=== PATIENT | female | born 1970 | race Caucasian/White ===

== ENCOUNTER 2024-03-24 15:50 | Inpatient (IN) | payer BC, MEDICAID ==
[~2024-03-24] VITALS: Ht 139.7 cm; Wt 56.1 kg
[~2024-03-24 15:50] MED LIST: NITR100C6 PO; PROM12.512 PO
[2024-03-24] MEDS ORDERED: iohexol 300mg/ml 100ml inj. ONE (19:02)
[2024-03-24 19:18] LABS: BASOPHILS # (AUTO) 0.1 X10'3 (0-0.2); BASOPHILS % (AUTO) 0.9 % (0-1); EOSINOPHILS # (AUTO) 0.1 X10'3 (0-0.9); EOSINOPHILS % (AUTO) 0.5 % (0-6); HEMATOCRIT 33.4 % (35.0-45.0); HEMOGLOBIN 10.4 g/dl (12.0-16.0); LYMPHOCYTES # (AUTO) 1.8 X10'3 (1.1-4.8); LYMPHOCYTES % (AUTO) 17.3 % (21-51); MEAN CORPUSCULAR HEMOGLOBIN 25.4 PG (27.0-31.0); MEAN CORPUSCULAR HGB CONC 31.1 g/dL (33.0-36.5); MEAN CORPUSCULAR VOLUME 81.9 FL (78-98); MEAN PLATELET VOLUME 8.4 FL (7.4-10.4); MONOCYTES # (AUTO) 0.5 X10'3 (0-0.9); MONOCYTES % (AUTO) 4.6 % (2-12); NEUTROPHILS # (AUTO) 8.1 X10'3 (1.8-7.7); NEUTROPHILS % (AUTO) 76.7 % (42-75); PLATELET COUNT 613 X10'3 (140-440); RED BLOOD COUNT 4.08 X10'6 (4.20-5.60); RED CELL DISTRIBUTION WIDTH 22.1 % (11.5-14.5); WHITE BLOOD COUNT 10.6 X10'3 (4.5-11.0)
[2024-03-24 19:30] LABS: ALANINE AMINOTRANSFERASE 11 U/L (12-78); ALBUMIN/GLOBULIN RATIO 0.3 (1.1-1.5); ALKALINE PHOSPHATASE 111 IU/L (46-116); ANION GAP 9 (8-16); ASPARTATE AMINO TRANSFERASE 10 U/L (10-37); BILIRUBIN,TOTAL 0.3 MG/DL (0.1-1.0); BLOOD UREA NITROGEN 4 MG/DL (7-18); BUN/CREATININE RATIO 5.6 (10.0-20.0); C-REACTIVE PROTEIN 8.94 MG/DL (0.0-0.5); CALCIUM 8.4 MG/DL (8.5-10.1); CHLORIDE 109 MMOL/L (99-107); CREATININE 0.72 MG/DL (0.40-0.90); GLUCOSE 112 MG/DL (70-104); SODIUM 141 MMOL/L (135-145); TOTAL CARBON DIOXIDE 23.3 MMOL/L (24-32); TOTAL PROTEIN 7.9 G/DL (6.4-8.2); eCRCL 48 ML/MIN; eGFR 84 ML/MIN
[2024-03-24] MEDS: diatr meglu/diatrizoate 30ml oral sol.-(3 dose) bottle PO SCH (19:30)
[2024-03-24 19:32] LABS: POTASSIUM 2.7 MMOL/L (3.5-5.1)
[2024-03-24] MEDS: vancomycin/NS 1 GM ADD-VANTAGE 250 ML IV ONE (19:40)
[2024-03-24] MEDS: normal saline 1000ml 1,000 ML IV ONE (20:03)
[2024-03-24] MEDS: ondansetron/PF 4mg/2ml inj IV ONE ×2 (20:10→21:39)
[2024-03-24] MEDS: magnesium sulf-water 2g/50mL 50 ML IV ONE (20:27)
[2024-03-24] MEDS: potassium chloride 10mEq ER tablet PO ONE (20:27)
[2024-03-24] MEDS: HYDROmorphone 1 mg/ml syringe IV ONE (21:42)
[2024-03-24 21:44] LABS: ANISOCYTOSIS 3+; BURR CELLS FEW; ELLIPTOCYTES FEW; HYPOCHROMASIA 1+; PLATELET ESTIMATE INCREASED
[2024-03-24] MEDS: levoFLOXACIN-Levaquin 500mg/D5 100 ML IV SCH (22:20)
[2024-03-24] MEDS ORDERED: magnesium sulf-water 2g/50mL 50 ML IV PRN (22:40)
[2024-03-24] MEDS ORDERED: potassium Cl 20 mEq SR tablet PO PRN (22:40)
[2024-03-24] MEDS ORDERED: magnesium Cl slow-release 64mg tablet PO PRN (22:40)
[2024-03-24] MEDS ORDERED: potassium Cl 40MEQ/1/2NS 520ml 520 ML IV PRN (22:40)
[2024-03-24] MEDS ORDERED: magnesium hydroxide 30ml (MOM) UD suspension PO PRN (22:40)
[2024-03-24] MEDS ORDERED: acetaminophen 325mg tablet PO PRN (22:40)
[2024-03-24] MEDS ORDERED: glucagon, human recombinant 1mg kit SUBCUT PRN (22:50)
[2024-03-24] MEDS ORDERED: DEXTROSE 15 GM of carb/4 tabs (each vial/BOTTLE has 4 tablets) PO PRN (22:50)
[2024-03-24] MEDS ORDERED: dextrose 50%-water 50ml dispensing syringe IV PRN ×2 (22:50)
[2024-03-24] MEDS: normal saline 1000ml 1,000 ML IV SCH (23:19)
[2024-03-24 23:47] LABS: BILIRUBIN,URINE NEGATIVE (Neg); CLARITY,URINE SLIGHTLY CLOUDY (Clear); COLOR,URINE YELLOW (Yellow); GLUCOSE, URINE NEGATIVE (Neg); KETONES,URINE NEGATIVE (Neg); LEUKOCYTE ESTERASE ,URINE TRACE (Neg); NITRITES, URINE POSITIVE (Neg); OCCULT BLOOD,URINE NEGATIVE (Neg); PROTEIN,URINE NEGATIVE (Neg); UROBILINOGEN,URINE 0.2 E.U/dL (0.2-1.0)
[2024-03-25] LABS: UA COLLECTION TYPE CLN CATCH MIDSTREAM
[2024-03-25 00:02] LABS: WBC,URINE 30-50 /HPF (0-4)
[2024-03-25 00:03] LABS: AMORPHOUS PHOSPHATES 3+; BACTERIA,URINE 4+ /HPF (Neg); MUCUS STRANDS FEW /LPF (Neg); RENAL CELLS, URINE FEW /HPF; SQUAMOUS EPITHELIAL CELL,UR MODERATE /LPF (FEW); TRANSITIONAL EPI CELLS,URINE FEW /HPF; WBC CLUMPS,URINE FEW /HPF (NEGATIVE)
[2024-03-25] MEDS: metroNIDAZOLE-Flagyl 500mg/NS 100 ML IV SCH (00:47)
[2024-03-25] MEDS: heparin, porcine 5000 units/ml vial SQ SCH (00:47)
[2024-03-25] MEDS: HYDROcodone/acetaminophen 10/325mg tab PO ONE (01:10)
[2024-03-25] MEDS: morphine 2 MG/ML inj. syringe IV PRN ×2 (01:18→04:53)
[2024-03-25 02:57] LABS: BASOPHILS # (AUTO) 0.1 X10'3 (0-0.2); BASOPHILS % (AUTO) 0.6 % (0-1); EOSINOPHILS # (AUTO) 0.1 X10'3 (0-0.9); EOSINOPHILS % (AUTO) 0.6 % (0-6); HEMATOCRIT 28.3 % (35.0-45.0); HEMOGLOBIN 8.8 g/dl (12.0-16.0); LYMPHOCYTES # (AUTO) 1.3 X10'3 (1.1-4.8); LYMPHOCYTES % (AUTO) 11.1 % (21-51); MEAN CORPUSCULAR HEMOGLOBIN 25.4 PG (27.0-31.0); MEAN CORPUSCULAR HGB CONC 31.1 g/dL (33.0-36.5); MEAN CORPUSCULAR VOLUME 81.7 FL (78-98); MEAN PLATELET VOLUME 7.8 FL (7.4-10.4); MONOCYTES # (AUTO) 0.8 X10'3 (0-0.9); MONOCYTES % (AUTO) 7.2 % (2-12); NEUTROPHILS # (AUTO) 9.5 X10'3 (1.8-7.7); NEUTROPHILS % (AUTO) 80.5 % (42-75); PLATELET COUNT 480 X10'3 (140-440); RED BLOOD COUNT 3.46 X10'6 (4.20-5.60); RED CELL DISTRIBUTION WIDTH 22.1 % (11.5-14.5); WHITE BLOOD COUNT 11.7 X10'3 (4.5-11.0)
[2024-03-25 03:07] LABS: INR 1.1 INR; PROTHROMBIN TIME 11.2 SECONDS (9.0-12.0)
[2024-03-25 03:12] LABS: ALANINE AMINOTRANSFERASE 9 U/L (12-78); ALBUMIN 1.6 G/DL (3.4-5.0); ALBUMIN/GLOBULIN RATIO 0.3 (1.1-1.5); ALKALINE PHOSPHATASE 93 IU/L (46-116); ANION GAP 6 (8-16); ASPARTATE AMINO TRANSFERASE 10 U/L (10-37); BILIRUBIN,TOTAL 0.2 MG/DL (0.1-1.0); BLOOD UREA NITROGEN 3 MG/DL (7-18); BUN/CREATININE RATIO 4.5 (10.0-20.0); CALCIUM 7.6 MG/DL (8.5-10.1); CHLORIDE 112 MMOL/L (99-107); CHOL/HDL RATIO 3.2 (0.00-4.99); CHOLESTEROL 139 MG/DL (0-200); CREATININE 0.66 MG/DL (0.40-0.90); GLUCOSE 108 MG/DL (70-104); HDL CHOLESTEROL 44 MG/DL (35-60); LDL CHOLESTEROL 76 MG/DL (50-100); POTASSIUM 3.5 MMOL/L (3.5-5.1); SODIUM 141 MMOL/L (135-145); TOTAL CARBON DIOXIDE 23.1 MMOL/L (24-32); TOTAL PROTEIN 6.6 G/DL (6.4-8.2); TRIGLYCERIDES 91 MG/DL (20-135); eCRCL 52 ML/MIN; eGFR > 90 ML/MIN
[2024-03-25] MEDS: HYDROcodone/acetaminophen 5mg/325mg tablet PO ONE ×2 (04:48→12:35)
[2024-03-25] MEDS: ondansetron/PF 4mg/2ml inj IV PRN (04:53)
[2024-03-25] MEDS: INSULIN LISPRO 100 UNIT/ML INSULN.PEN MULTI-DOSE SQ SCH (07:00)
[2024-03-25] MEDS: docusate sod 100mg capsule PO SCH (08:00)
[2024-03-25] MEDS: K and/or MAG REPLACEMENT MC SCH (08:07)
[2024-03-25] MEDS: metoclopramide 5 mg/ml inj IV PRN (10:56)
[2024-03-25] MEDS ORDERED: metoclopramide 5 mg/ml inj IV PRN (12:30)
[2024-03-25] MEDS: LidoCAINE 2% Topical Jelly 11mL syringe (UROJET) TOP ONE (12:35)
[2024-03-25] MEDS: HYDROmorphone/PF 0.2 MG/ML SYRINGE IV PRN (16:39)
[2024-03-25 18:00] VITALS: BP 123/67; PULSE 89; RESP 20; TEMP 97.7; O2SAT 96
[2024-03-25 20:25] VITALS: RESP 16; O2SAT 96
[2024-03-25] MEDS: HYDROcodone/acetaminophen 10/325mg tab PO PRN (21:00)
[2024-03-25 22:00] VITALS: BP 135/67; PULSE 94; RESP 18; TEMP 98; O2SAT 94
[2024-03-26] VITALS (7 sets, daily range): BP systolic 121–153; BP diastolic 60–84; PULSE 81–99; RESP 17–24; TEMP 96.1–98.9; O2SAT 92–98
[2024-03-26] MEDS ORDERED: HYDROmorphone/PF 0.2 MG/ML SYRINGE IM ONE (01:20)
[2024-03-26] MEDS: HYDROmorphone/PF 0.2 MG/ML SYRINGE IV ONE (01:47)
[2024-03-26] MEDS ORDERED: TRAZ150T78 PO (02:43)
[2024-03-26] MEDS ORDERED: GABA-530 PO (02:51)
[2024-03-26] MEDS ORDERED: BUS15T PO (02:52)
[2024-03-26 06:38] LABS: BASOPHILS # (AUTO) 0.1 X10'3 (0-0.2); BASOPHILS % (AUTO) 0.9 % (0-1); EOSINOPHILS # (AUTO) 0.1 X10'3 (0-0.9); EOSINOPHILS % (AUTO) 1.7 % (0-6); LYMPHOCYTES # (AUTO) 1.8 X10'3 (1.1-4.8); LYMPHOCYTES % (AUTO) 22.7 % (21-51); MEAN CORPUSCULAR HEMOGLOBIN 25.3 PG (27.0-31.0); MEAN CORPUSCULAR HGB CONC 30.6 g/dL (33.0-36.5); MEAN CORPUSCULAR VOLUME 82.5 FL (78-98); MEAN PLATELET VOLUME 8.7 FL (7.4-10.4); MONOCYTES # (AUTO) 0.6 X10'3 (0-0.9); MONOCYTES % (AUTO) 7.2 % (2-12); NEUTROPHILS # (AUTO) 5.5 X10'3 (1.8-7.7); NEUTROPHILS % (AUTO) 67.5 % (42-75); PLATELET COUNT 478 X10'3 (140-440); RED BLOOD COUNT 3.15 X10'6 (4.20-5.60); WHITE BLOOD COUNT 8.1 X10'3 (4.5-11.0)
[2024-03-26 06:55] LABS: ALBUMIN 1.4 G/DL (3.4-5.0); ALBUMIN/GLOBULIN RATIO 0.3 (1.1-1.5); ALKALINE PHOSPHATASE 83 IU/L (46-116); ANION GAP 7 (8-16); ASPARTATE AMINO TRANSFERASE 7 U/L (10-37); BILIRUBIN,TOTAL 0.1 MG/DL (0.1-1.0); BLOOD UREA NITROGEN 2 MG/DL (7-18); BUN/CREATININE RATIO 3.4 (10.0-20.0); CALCIUM 7.7 MG/DL (8.5-10.1); CHLORIDE 112 MMOL/L (99-107); CREATININE 0.58 MG/DL (0.40-0.90); GLUCOSE 101 MG/DL (70-104); MAGNESIUM 1.5 MG/DL (1.5-2.4); POTASSIUM 3.1 MMOL/L (3.5-5.1); SODIUM 140 MMOL/L (135-145); TOTAL CARBON DIOXIDE 20.9 MMOL/L (24-32); TOTAL PROTEIN 6.2 G/DL (6.4-8.2); eCRCL 60 ML/MIN; eGFR > 90 ML/MIN
[2024-03-26 06:56] LABS: ALANINE AMINOTRANSFERASE < 6 U/L (12-78)
[2024-03-26] MEDS: potassium Cl 20 mEq SR tablet PO PRN (09:17)
[2024-03-26] MEDS: HYDROcodone/acetaminophen 10/325mg tab PO PRN (11:35)
[2024-03-26 14:24] LABS: % IRON SATURATION 21 % (11-46); IRON 23 UG/DL (49-151); TOTAL IRON BINDING CAPACITY 112 UG/DL (259-388)
[2024-03-26 14:25] LABS: FERRITIN 85 NG/ML (8-252)
[2024-03-26] MEDS: JUVEN Smoothie Arginine/Glut./Ca2+Bmb (Juven 19.3pkt) 240ml cup PO SCH (17:30)
[2024-03-26] MEDS: iron polysaccharide complex 150mg capsule PO SCH (20:10)
[2024-03-26] MEDS: ascorbic acid 500mg tablet PO SCH (20:11)
[2024-03-26] MEDS: zinc sulfate 220mg capsule PO SCH (21:00)
[2024-03-26] MEDS: traZODone 150mg tablet PO SCH (21:11)
[2024-03-26] MEDS: linezolid 600mg/300ml PREMIX 300 ML IV SCH (22:25)
[2024-03-27] VITALS (8 sets, daily range): BP systolic 115–154; BP diastolic 63–72; PULSE 77–104; RESP 14–26; TEMP 97.4–98.5; O2SAT 90–96
[2024-03-27] MEDS: HYDROmorphone/PF 0.2 MG/ML SYRINGE IV PRN (00:03)
[2024-03-27 07:18] LABS: BASOPHILS # (AUTO) 0.1 X10'3 (0-0.2); BASOPHILS % (AUTO) 1.1 % (0-1); EOSINOPHILS # (AUTO) 0.2 X10'3 (0-0.9); EOSINOPHILS % (AUTO) 2.7 % (0-6); HEMATOCRIT 26.3 % (35.0-45.0); LYMPHOCYTES # (AUTO) 1.5 X10'3 (1.1-4.8); LYMPHOCYTES % (AUTO) 18.5 % (21-51); MEAN CORPUSCULAR HEMOGLOBIN 25.6 PG (27.0-31.0); MEAN CORPUSCULAR HGB CONC 30.4 g/dL (33.0-36.5); MEAN CORPUSCULAR VOLUME 84.2 FL (78-98); MEAN PLATELET VOLUME 8.2 FL (7.4-10.4); MONOCYTES # (AUTO) 0.6 X10'3 (0-0.9); NEUTROPHILS # (AUTO) 5.6 X10'3 (1.8-7.7); NEUTROPHILS % (AUTO) 69.7 % (42-75); PLATELET COUNT 497 X10'3 (140-440); RED BLOOD COUNT 3.12 X10'6 (4.20-5.60); RED CELL DISTRIBUTION WIDTH 22.6 % (11.5-14.5); WHITE BLOOD COUNT 8.1 X10'3 (4.5-11.0)
[2024-03-27] MEDS: levoFLOXACIN-Levaquin 500mg/D5 100 ML IV SCH (07:57)
[2024-03-27] MEDS: folic acid 1mg tablet PO SCH (07:58)
[2024-03-27 08:18] LABS: ALBUMIN 1.5 G/DL (3.4-5.0); ALBUMIN/GLOBULIN RATIO 0.3 (1.1-1.5); ALKALINE PHOSPHATASE 76 IU/L (46-116); ANION GAP 6 (8-16); ASPARTATE AMINO TRANSFERASE 5 U/L (10-37); BILIRUBIN,TOTAL 0.2 MG/DL (0.1-1.0); BLOOD UREA NITROGEN 1 MG/DL (7-18); BUN/CREATININE RATIO 1.8 (10.0-20.0); CALCIUM 8.1 MG/DL (8.5-10.1); CHLORIDE 112 MMOL/L (99-107); CREATININE 0.55 MG/DL (0.40-0.90); GLUCOSE 134 MG/DL (70-104); POTASSIUM 3.7 MMOL/L (3.5-5.1); SODIUM 141 MMOL/L (135-145); TOTAL CARBON DIOXIDE 22.7 MMOL/L (24-32); TOTAL PROTEIN 6.1 G/DL (6.4-8.2); eCRCL 63 ML/MIN; eGFR > 90 ML/MIN
[2024-03-27 08:22] LABS: MAGNESIUM 0.7 MG/DL (1.5-2.4)
[2024-03-27] MEDS: magnesium sulf-water 4G/100mL 100 ML IV PRN (08:45)
[2024-03-27] MEDS: magnesium sulf-water 4G/100mL 100 ML IV ONE (08:51)
[2024-03-27 08:55] LABS: ALANINE AMINOTRANSFERASE < 6 U/L (12-78)
[2024-03-27] MEDS ORDERED: levoFLOXACIN 500mg tablet PO SCH (11:00)
[2024-03-28] VITALS (15 sets, daily range): BP systolic 121–165; BP diastolic 67–92; PULSE 69–98; RESP 16–26; TEMP 97.4–98.8; O2SAT 86–98
[2024-03-28] MEDS ORDERED: magnesium sulf-water 4G/100mL 100 ML IV PRN (06:50)
[2024-03-28] MEDS ORDERED: magnesium Cl slow-release 64mg tablet PO PRN (06:50)
[2024-03-28] MEDS ORDERED: magnesium sulf-water 2g/50mL 50 ML IV PRN (06:50)
[2024-03-28] MEDS ORDERED: potassium Cl 20 mEq SR tablet PO PRN ×2 (06:50)
[2024-03-28] MEDS ORDERED: potassium Cl 40MEQ/1/2NS 520ml 520 ML IV PRN (06:50)
[2024-03-28 07:46] LABS: BASOPHILS # (AUTO) 0.1 X10'3 (0-0.2); BASOPHILS % (AUTO) 0.9 % (0-1); EOSINOPHILS # (AUTO) 0.3 X10'3 (0-0.9); EOSINOPHILS % (AUTO) 3.9 % (0-6); HEMATOCRIT 27.4 % (35.0-45.0); HEMOGLOBIN 8.5 g/dl (12.0-16.0); LYMPHOCYTES # (AUTO) 1.4 X10'3 (1.1-4.8); LYMPHOCYTES % (AUTO) 19.4 % (21-51); MEAN CORPUSCULAR HEMOGLOBIN 25.5 PG (27.0-31.0); MEAN CORPUSCULAR HGB CONC 30.8 g/dL (33.0-36.5); MEAN CORPUSCULAR VOLUME 82.7 FL (78-98); MEAN PLATELET VOLUME 8.1 FL (7.4-10.4); MONOCYTES # (AUTO) 0.6 X10'3 (0-0.9); MONOCYTES % (AUTO) 7.9 % (2-12); NEUTROPHILS # (AUTO) 4.8 X10'3 (1.8-7.7); NEUTROPHILS % (AUTO) 67.9 % (42-75); PLATELET COUNT 562 X10'3 (140-440); RED BLOOD COUNT 3.32 X10'6 (4.20-5.60); WHITE BLOOD COUNT 7.1 X10'3 (4.5-11.0)
[2024-03-28] MEDS: K and/or MAG REPLACEMENT MC SCH (08:00)
[2024-03-28 08:44] LABS: ALANINE AMINOTRANSFERASE 10 U/L (12-78); ALBUMIN 1.5 G/DL (3.4-5.0); ALBUMIN/GLOBULIN RATIO 0.3 (1.1-1.5); ALKALINE PHOSPHATASE 78 IU/L (46-116); ANION GAP 7 (8-16); ASPARTATE AMINO TRANSFERASE 16 U/L (10-37); BILIRUBIN,TOTAL 0.1 MG/DL (0.1-1.0); BLOOD UREA NITROGEN 4 MG/DL (7-18); BUN/CREATININE RATIO 6.3 (10.0-20.0); CALCIUM 7.8 MG/DL (8.5-10.1); CHLORIDE 112 MMOL/L (99-107); CREATININE 0.64 MG/DL (0.40-0.90); GLUCOSE 121 MG/DL (70-104); MAGNESIUM 1.8 MG/DL (1.5-2.4); POTASSIUM 3.5 MMOL/L (3.5-5.1); SODIUM 141 MMOL/L (135-145); TOTAL PROTEIN 6.4 G/DL (6.4-8.2); eCRCL 54 ML/MIN; eGFR > 90 ML/MIN
[2024-03-28] MEDS: metroNIDAZOLE-Flagyl 500mg/NS 100 ML IV SCH (09:58)
[2024-03-28] MEDS: levoFLOXACIN-Levaquin 750MG/D5 150 ML IV SCH (09:58)
[2024-03-28] MEDS: linezolid 600mg/300ml PREMIX 300 ML IV SCH (09:58)
[2024-03-28 10:04] LABS: PLATELET ESTIMATE INCREASED; POLYCHROMASIA 1+
[2024-03-28 10:05] LABS: ANISOCYTOSIS 3+; ELLIPTOCYTES FEW; HYPOCHROMASIA 1+; SCHISTOCYTES FEW
[2024-03-28] MEDS ORDERED: sevoflurane 250ml liquid IH ONE (19:24)
[2024-03-28] MEDS ORDERED: fentaNYL/PF 50MCG/1 ML 2ML syringe ONE (19:27)
[2024-03-28] MEDS ORDERED: HYDROmorphone/PF 0.2 MG/ML SYRINGE IV PRN (19:50)
[2024-03-28] MEDS ORDERED: morphine 4 MG/ML inj SYRINge IV PRN (19:50)
[2024-03-28] MEDS ORDERED: labetalol 20mg/4ml (5mg/ml) syringe IV PRN (19:50)
[2024-03-28] MEDS ORDERED: proCHLORperazine 10 MG/2 ml inj IV PRN (19:50)
[2024-03-28] MEDS ORDERED: hydrALAZINE 20mg/ml inj. IV PRN (19:50)
[2024-03-28] MEDS ORDERED: rocuronium 10mg/ml inj IV ONE (19:56)
[2024-03-28] MEDS ORDERED: propofol inj 20 ML IV ONE (19:56)
[2024-03-28] MEDS ORDERED: midazolam 1 mg/ML 2ml injection ONE (19:56)
[2024-03-28] MEDS ORDERED: LIDOcaine 2% (20mg/ml) 5ml vial ONE (19:56)
[2024-03-28] MEDS ORDERED: dexamethasone sod phosphate 4mg/ml inj. ONE (19:59)
[2024-03-28] MEDS ORDERED: ondansetron/PF 4mg/2ml inj ONE (19:59)
[2024-03-28] MEDS: acetaminophen 1,000mg/100ml IV 100 ML IV ONE (20:33)
[2024-03-28] MEDS: morphine 2 MG/ML inj. syringe IV PRN (20:33)
[2024-03-28] MEDS: ondansetron/PF 4mg/2ml inj IV PRN (20:40)
[2024-03-28] MEDS: ringers solution, lacted 1,000 ML IV SCH (22:11)
[2024-03-29] VITALS (7 sets, daily range): BP systolic 97–129; BP diastolic 47–67; PULSE 57–96; RESP 17–20; TEMP 97–98.5; O2SAT 95–99
[2024-03-29] MEDS: cefepime 1GM/NS ADD-VANTAGE 100 ML IV SCH (01:45)
[2024-03-29 06:32] LABS: BASOPHILS % (AUTO) 0.4 % (0-1); EOSINOPHILS % (AUTO) 0 % (0-6); HEMATOCRIT 30.8 % (35.0-45.0); HEMOGLOBIN 9.7 g/dl (12.0-16.0); LYMPHOCYTES # (AUTO) 0.7 X10'3 (1.1-4.8); LYMPHOCYTES % (AUTO) 9.1 % (21-51); MEAN CORPUSCULAR HEMOGLOBIN 25.8 PG (27.0-31.0); MEAN CORPUSCULAR HGB CONC 31.4 g/dL (33.0-36.5); MEAN CORPUSCULAR VOLUME 82.2 FL (78-98); MONOCYTES # (AUTO) 0.1 X10'3 (0-0.9); MONOCYTES % (AUTO) 1.1 % (2-12); NEUTROPHILS # (AUTO) 7.2 X10'3 (1.8-7.7); NEUTROPHILS % (AUTO) 89.4 % (42-75); PLATELET COUNT 563 X10'3 (140-440); RED BLOOD COUNT 3.75 X10'6 (4.20-5.60); RED CELL DISTRIBUTION WIDTH 22.4 % (11.5-14.5); WHITE BLOOD COUNT 8.1 X10'3 (4.5-11.0)
[2024-03-29 07:05] LABS: ALANINE AMINOTRANSFERASE 10 U/L (12-78); ALBUMIN 1.7 G/DL (3.4-5.0); ALBUMIN/GLOBULIN RATIO 0.3 (1.1-1.5); ALKALINE PHOSPHATASE 83 IU/L (46-116); ANION GAP 9 (8-16); ASPARTATE AMINO TRANSFERASE 9 U/L (10-37); BILIRUBIN,TOTAL 0.2 MG/DL (0.1-1.0); BLOOD UREA NITROGEN 5 MG/DL (7-18); BUN/CREATININE RATIO 7.4 (10.0-20.0); CALCIUM 8.3 MG/DL (8.5-10.1); CHLORIDE 104 MMOL/L (99-107); CREATININE 0.68 MG/DL (0.40-0.90); GLUCOSE 206 MG/DL (70-104); SODIUM 136 MMOL/L (135-145); TOTAL CARBON DIOXIDE 23.2 MMOL/L (24-32); TOTAL PROTEIN 7.1 G/DL (6.4-8.2); eCRCL 51 ML/MIN; eGFR 90 ML/MIN
[2024-03-29] MEDS: HYDROmorphone/PF 0.2 MG/ML SYRINGE IV PRN (10:36)
[2024-03-29] MEDS: metoclopramide 5 mg/ml inj IV PRN (12:22)
[2024-03-29] MEDS: lactose-reduced food (Ensure High Protein) 237ml bottle PO SCH (17:53)
[2024-03-29] MEDS: HYDROmorphone inj. 0.5 MG/0.5 ML DISP.SYRIN IV PRN (23:56)
[2024-03-30 06:00] VITALS: BP_SYST 111; BP_SYST 114; BP_DIAS 61; BP_DIAS 72; PULSE 57; PULSE 68; RESP 18; RESP 20; TEMP 98.2; TEMP 98.5; O2SAT 95; O2SAT 97
[2024-03-30 10:00] VITALS: BP 111/54; PULSE 88; RESP 20; TEMP 98.8; O2SAT 97
[2024-03-30 10:34] VITALS: RESP 18; O2SAT 96
[2024-03-30] MEDS: HYDROmorphone 1 mg/ml syringe IV ONE (11:31)
[2024-03-30] MEDS: gabapentin 300mg capsule PO SCH (12:29)
[2024-03-30 13:03] LABS: ALBUMIN 1.7 G/DL (3.4-5.0); ANION GAP 7 (8-16); BLOOD UREA NITROGEN 11 MG/DL (7-18); BUN/CREATININE RATIO 15.3 (10.0-20.0); CALCIUM 8.2 MG/DL (8.5-10.1); CHLORIDE 107 MMOL/L (99-107); CREATININE 0.72 MG/DL (0.40-0.90); GLUCOSE 233 MG/DL (70-104); POTASSIUM 3.6 MMOL/L (3.5-5.1); SODIUM 139 MMOL/L (135-145); TOTAL CARBON DIOXIDE 25.5 MMOL/L (24-32); eCRCL 48 ML/MIN; eGFR 84 ML/MIN
[2024-03-30 13:08] LABS: BASOPHILS % (AUTO) 0.2 % (0-1); EOSINOPHILS # (AUTO) 0.1 X10'3 (0-0.9); HEMATOCRIT 28.8 % (35.0-45.0); HEMOGLOBIN 9.2 g/dl (12.0-16.0); LYMPHOCYTES # (AUTO) 1.6 X10'3 (1.1-4.8); LYMPHOCYTES % (AUTO) 14.5 % (21-51); MEAN CORPUSCULAR HEMOGLOBIN 26.2 PG (27.0-31.0); MEAN CORPUSCULAR HGB CONC 31.8 g/dL (33.0-36.5); MEAN CORPUSCULAR VOLUME 82.4 FL (78-98); MEAN PLATELET VOLUME 7.8 FL (7.4-10.4); MONOCYTES # (AUTO) 0.7 X10'3 (0-0.9); NEUTROPHILS # (AUTO) 8.7 X10'3 (1.8-7.7); NEUTROPHILS % (AUTO) 78.3 % (42-75); PLATELET COUNT 565 X10'3 (140-440); RED CELL DISTRIBUTION WIDTH 22.3 % (11.5-14.5); WHITE BLOOD COUNT 11.1 X10'3 (4.5-11.0)
[2024-03-30 13:43] LABS: ANISOCYTOSIS 3+; ELLIPTOCYTES FEW; HYPOCHROMASIA 1+; PLATELET ESTIMATE INCREASED; POLYCHROMASIA FEW; STOMATOCYTES FEW; TEAR DROP CELLS 1+
[2024-03-30 15:00] VITALS: BP 127/59; PULSE 92; RESP 22; TEMP 98; O2SAT 98
[2024-03-30] MEDS: nitroGLYCERIN 0.4mg SUBLingual tab SL ONE (15:03)
[2024-03-30] MEDS: nitroGLYCERIN 0.4mg SUBLingual tab SL PRN (15:08)
[2024-03-30] MEDS: atorvastatin 20mg tablet PO ONE (15:13)
[2024-03-30] MEDS: clopidogrel 300mg tablet PO ONE (15:14)
[2024-03-30] MEDS: aspirin 325mg tablet, delayed-release (Ecotrin) PO ONE (15:14)
[2024-03-30 15:42] LABS: PRO BRAIN NATRIURETIC PEPTIDE 3017 PG/ML (0-125)
[2024-03-30] MEDS: furosemide 40mg/4ml inj IV ONE (16:06)
[2024-03-30] MEDS: LORazepam 2 mg/ml vial IV PRN (16:25)
[2024-03-30 18:00] VITALS: BP 132/71; PULSE 85; RESP 20; TEMP 97.3; O2SAT 97
[2024-03-30] MEDS: lactobacillus rhamnosus 10,000 MMU CELLS/CAPSULE PO SCH (20:06)
[2024-03-30] MEDS: HYDROmorphone inj. 0.5 MG/0.5 ML DISP.SYRIN IV PRN (21:25)
[2024-03-30 22:00] VITALS: BP 131/61; PULSE 84; RESP 22; TEMP 98.2; O2SAT 97
[2024-03-31] VITALS (8 sets, daily range): BP systolic 117–135; BP diastolic 53–80; PULSE 78–90; RESP 16–22; TEMP 96.8–98.1; O2SAT 95–99
[2024-03-31] MEDS: HYDROmorphone inj. 0.5 MG/0.5 ML DISP.SYRIN IV PRN (01:53)
[2024-03-31] MEDS: furosemide 20 MG/2 ML vial IV SCH (08:00)
[2024-03-31] MEDS ORDERED: aminophylline 250mg/10ml inj. IV PRN (08:35)
[2024-03-31] MEDS ORDERED: metoprolol tartrate 1mg/ml inj IV PRN (08:35)
[2024-03-31] MEDS ORDERED: regadenoson 0.4mg/5ml syringe IV PRN (08:35)
[2024-03-31] MEDS ORDERED: nitroGLYCERIN 0.4mg SUBLingual tab SL PRN (08:35)
[2024-03-31 09:26] LABS: BASOPHILS # (AUTO) 0.1 X10'3 (0-0.2); BASOPHILS % (AUTO) 0.7 % (0-1); EOSINOPHILS # (AUTO) 0.2 X10'3 (0-0.9); EOSINOPHILS % (AUTO) 3.1 % (0-6); HEMATOCRIT 27.4 % (35.0-45.0); HEMOGLOBIN 8.8 g/dl (12.0-16.0); LYMPHOCYTES # (AUTO) 1.4 X10'3 (1.1-4.8); LYMPHOCYTES % (AUTO) 18.3 % (21-51); MEAN CORPUSCULAR HEMOGLOBIN 26.6 PG (27.0-31.0); MEAN CORPUSCULAR HGB CONC 31.9 g/dL (33.0-36.5); MEAN CORPUSCULAR VOLUME 83.3 FL (78-98); MEAN PLATELET VOLUME 7.5 FL (7.4-10.4); MONOCYTES # (AUTO) 0.5 X10'3 (0-0.9); MONOCYTES % (AUTO) 7.3 % (2-12); NEUTROPHILS # (AUTO) 5.3 X10'3 (1.8-7.7); NEUTROPHILS % (AUTO) 70.6 % (42-75); PLATELET COUNT 505 X10'3 (140-440); RED BLOOD COUNT 3.29 X10'6 (4.20-5.60); RED CELL DISTRIBUTION WIDTH 22.5 % (11.5-14.5); WHITE BLOOD COUNT 7.5 X10'3 (4.5-11.0)
[2024-03-31 09:36] LABS: ALBUMIN 1.7 G/DL (3.4-5.0); ANION GAP 5 (8-16); BLOOD UREA NITROGEN 8 MG/DL (7-18); BUN/CREATININE RATIO 11.9 (10.0-20.0); CALCIUM 8.2 MG/DL (8.5-10.1); CHLORIDE 107 MMOL/L (99-107); CREATININE 0.67 MG/DL (0.40-0.90); GLUCOSE 192 MG/DL (70-104); MAGNESIUM 1.5 MG/DL (1.5-2.4); POTASSIUM 3.6 MMOL/L (3.5-5.1); SODIUM 139 MMOL/L (135-145); TOTAL CARBON DIOXIDE 26.7 MMOL/L (24-32); eCRCL 52 ML/MIN; eGFR > 90 ML/MIN
[2024-03-31] MEDS ORDERED: naloxone 0.4 mg/ml inj IV PRN (11:10)
[2024-03-31] MEDS: normal saline 1000ml 1,000 ML IV SCH (11:10)
[2024-03-31] MEDS ORDERED: FERR-106 PO (11:29)
[2024-03-31] MEDS ORDERED: BUSP15TA7 PO (11:29)
[2024-03-31] MEDS ORDERED: EMPA10TA PO (11:29)
[2024-03-31] MEDS ORDERED: PANT40TA54 PO (11:29)
[2024-03-31] MEDS ORDERED: SPIR25TA5 PO (11:29)
[2024-03-31] MEDS ORDERED: FURO20TA4 PO (11:29)
[2024-03-31] MEDS ORDERED: NALO4SPR5 (11:29)
[2024-03-31] MEDS ORDERED: ALBU10.7 INH (11:29)
[2024-03-31] MEDS ORDERED: GABA-1405 PO (11:29)
[2024-03-31] MEDS ORDERED: FLUT1BLS10 PO (11:29)
[2024-03-31] MEDS ORDERED: CLOP75TA34 PO (11:29)
[2024-03-31] MEDS ORDERED: CHOL378P14 PO (11:29)
[2024-03-31] MEDS ORDERED: AMLO5TAB16 PO (11:29)
[2024-03-31] MEDS ORDERED: RIVA20TA PO (11:29)
[2024-03-31] MEDS ORDERED: OXYC-658 PO (11:29)
[2024-03-31] MEDS ORDERED: LOSA25TA41 PO (11:29)
[2024-03-31] MEDS ORDERED: METO-384 PO (11:29)
[2024-03-31] MEDS ORDERED: CYAN100021 PO (11:29)
[2024-03-31] MEDS ORDERED: BLOO-1657 (11:29)
[2024-03-31] MEDS ORDERED: GABA300T28 PO (11:29)
[2024-03-31] MEDS ORDERED: budesonide 0.5mg/2ml UD nebule IH PRN (12:45)
[2024-03-31] MEDS ORDERED: potassium Cl 40MEQ/1/2NS 520ml 520 ML IV PRN (14:00)
[2024-03-31] MEDS: HYDROmorph/NS 0.2 mg/ml PCA 100 ML IV SCH (14:53)
[2024-03-31] MEDS: rivaroxaban 15mg tablet PO SCH (15:37)
[2024-03-31] MEDS: busPIRone 5mg tablet PO SCH (15:38)
[2024-03-31] MEDS ORDERED: albuterol 2.5 MG/3 ML nebule NEB PRN (16:50)
[2024-03-31] MEDS: metroNIDAZOLE 500mg tablet PO SCH (18:30)
[2024-03-31] MEDS: docusate sod 100mg capsule PO SCH (20:00)
[2024-03-31] MEDS: K and/or MAG REPLACEMENT MC SCH (20:00)
[2024-03-31] MEDS: linezolid 600mg tablet PO SCH (20:08)
[2024-04-01] VITALS (10 sets, daily range): BP systolic 99–127; BP diastolic 44–75; PULSE 78–94; RESP 13–18; TEMP 97.1–98.7; O2SAT 95–99
[2024-04-01 07:28] LABS: BASOPHILS % (AUTO) 0.5 % (0-1); EOSINOPHILS # (AUTO) 0.3 X10'3 (0-0.9); EOSINOPHILS % (AUTO) 3.8 % (0-6); HEMATOCRIT 26.7 % (35.0-45.0); HEMOGLOBIN 8.4 g/dl (12.0-16.0); LYMPHOCYTES # (AUTO) 1.8 X10'3 (1.1-4.8); LYMPHOCYTES % (AUTO) 23.9 % (21-51); MEAN CORPUSCULAR HEMOGLOBIN 26.3 PG (27.0-31.0); MEAN CORPUSCULAR HGB CONC 31.4 g/dL (33.0-36.5); MEAN CORPUSCULAR VOLUME 83.8 FL (78-98); MEAN PLATELET VOLUME 7.5 FL (7.4-10.4); MONOCYTES # (AUTO) 0.5 X10'3 (0-0.9); MONOCYTES % (AUTO) 6.4 % (2-12); NEUTROPHILS % (AUTO) 65.4 % (42-75); PLATELET COUNT 473 X10'3 (140-440); RED BLOOD COUNT 3.18 X10'6 (4.20-5.60); RED CELL DISTRIBUTION WIDTH 22.8 % (11.5-14.5); WHITE BLOOD COUNT 7.7 X10'3 (4.5-11.0)
[2024-04-01 08:00] LABS: ALBUMIN 1.7 G/DL (3.4-5.0); BLOOD UREA NITROGEN 16 MG/DL (7-18); BUN/CREATININE RATIO 22.2 (10.0-20.0); CALCIUM 8.8 MG/DL (8.5-10.1); CREATININE 0.72 MG/DL (0.40-0.90); GLUCOSE 181 MG/DL (70-104); MAGNESIUM 1.4 MG/DL (1.5-2.4); TOTAL CARBON DIOXIDE 27.4 MMOL/L (24-32); eCRCL 48 ML/MIN; eGFR 84 ML/MIN
[2024-04-01 08:11] LABS: ANION GAP 4 (8-16); CHLORIDE 105 MMOL/L (99-107); POTASSIUM 4.1 MMOL/L (3.5-5.1); SODIUM 136 MMOL/L (135-145)
[2024-04-01] MEDS: cyanocobalamin 500mcg tablet PO SCH (09:08)
[2024-04-01] MEDS: amLODIPine 5mg tablet PO SCH (09:11)
[2024-04-01] MEDS: cefepime 1GM/NS ADD-VANTAGE 100 ML IV SCH (09:12)
[2024-04-01] MEDS: EMPAGLIFLOZIN 10 MG TABLET PO SCH (11:56)
[2024-04-01] MEDS: magnesium sulf-water 4G/100mL 100 ML IV PRN (16:31)
[2024-04-01] MEDS: magnesium sulf-water 2g/50mL 50 ML IV PRN (21:42)
[2024-04-01] MEDS: linezolid 600mg/300ml PREMIX 300 ML IV SCH (21:44)
[2024-04-02] VITALS (11 sets, daily range): BP systolic 98–115; BP diastolic 41–64; PULSE 75–119; RESP 12–26; TEMP 97.2–99; O2SAT 94–99
[2024-04-02] MEDS: metroNIDAZOLE-Flagyl 500mg/NS 100 ML IV SCH (01:10)
[2024-04-02 07:08] LABS: BASOPHILS % (AUTO) 0.4 % (0-1); EOSINOPHILS # (AUTO) 0.3 X10'3 (0-0.9); EOSINOPHILS % (AUTO) 2.7 % (0-6); HEMATOCRIT 26.1 % (35.0-45.0); HEMOGLOBIN 8.2 g/dl (12.0-16.0); LYMPHOCYTES # (AUTO) 1.5 X10'3 (1.1-4.8); LYMPHOCYTES % (AUTO) 15.8 % (21-51); MEAN CORPUSCULAR HEMOGLOBIN 26.4 PG (27.0-31.0); MEAN CORPUSCULAR HGB CONC 31.5 g/dL (33.0-36.5); MEAN CORPUSCULAR VOLUME 83.9 FL (78-98); MEAN PLATELET VOLUME 7.5 FL (7.4-10.4); MONOCYTES # (AUTO) 0.5 X10'3 (0-0.9); MONOCYTES % (AUTO) 5.6 % (2-12); NEUTROPHILS # (AUTO) 7.2 X10'3 (1.8-7.7); NEUTROPHILS % (AUTO) 75.5 % (42-75); PLATELET COUNT 480 X10'3 (140-440); RED BLOOD COUNT 3.11 X10'6 (4.20-5.60); RED CELL DISTRIBUTION WIDTH 22.6 % (11.5-14.5); WHITE BLOOD COUNT 9.5 X10'3 (4.5-11.0)
[2024-04-02 07:23] LABS: ALBUMIN 1.8 G/DL (3.4-5.0); ANION GAP 7 (8-16); BLOOD UREA NITROGEN 18 MG/DL (7-18); BUN/CREATININE RATIO 25.4 (10.0-20.0); CALCIUM 8.4 MG/DL (8.5-10.1); CHLORIDE 105 MMOL/L (99-107); CREATININE 0.71 MG/DL (0.40-0.90); GLUCOSE 183 MG/DL (70-104); MAGNESIUM 2.9 MG/DL (1.5-2.4); POTASSIUM 4.3 MMOL/L (3.5-5.1); SODIUM 138 MMOL/L (135-145); TOTAL CARBON DIOXIDE 25.8 MMOL/L (24-32); eCRCL 49 ML/MIN; eGFR 86 ML/MIN
[2024-04-02] MEDS: metroNIDAZOLE 500mg tablet PO SCH (17:07)
[2024-04-02] MEDS: linezolid 600mg tablet PO SCH (19:32)
[2024-04-02] MEDS ORDERED: magnesium hydroxide 30ml (MOM) UD suspension PO PRN (19:55)
[2024-04-03] VITALS (10 sets, daily range): BP systolic 84–125; BP diastolic 44–69; PULSE 60–106; RESP 15–22; TEMP 97–98.1; O2SAT 94–100
[2024-04-03 07:25] LABS: BASOPHILS % (AUTO) 0.3 % (0-1); EOSINOPHILS # (AUTO) 0.3 X10'3 (0-0.9); EOSINOPHILS % (AUTO) 2.6 % (0-6); HEMATOCRIT 27.3 % (35.0-45.0); HEMOGLOBIN 8.6 g/dl (12.0-16.0); LYMPHOCYTES # (AUTO) 1.6 X10'3 (1.1-4.8); LYMPHOCYTES % (AUTO) 16.3 % (21-51); MEAN CORPUSCULAR HEMOGLOBIN 26.7 PG (27.0-31.0); MEAN CORPUSCULAR HGB CONC 31.6 g/dL (33.0-36.5); MEAN CORPUSCULAR VOLUME 84.2 FL (78-98); MEAN PLATELET VOLUME 7.5 FL (7.4-10.4); MONOCYTES # (AUTO) 0.5 X10'3 (0-0.9); MONOCYTES % (AUTO) 4.6 % (2-12); NEUTROPHILS # (AUTO) 7.6 X10'3 (1.8-7.7); NEUTROPHILS % (AUTO) 76.2 % (42-75); PLATELET COUNT 481 X10'3 (140-440); RED BLOOD COUNT 3.24 X10'6 (4.20-5.60); RED CELL DISTRIBUTION WIDTH 22.5 % (11.5-14.5)
[2024-04-03 08:03] LABS: ALBUMIN 2.1 G/DL (3.4-5.0); ANION GAP 5 (8-16); BLOOD UREA NITROGEN 25 MG/DL (7-18); BUN/CREATININE RATIO 33.8 (10.0-20.0); CALCIUM 8.8 MG/DL (8.5-10.1); CHLORIDE 104 MMOL/L (99-107); CREATININE 0.74 MG/DL (0.40-0.90); GLUCOSE 197 MG/DL (70-104); MAGNESIUM 1.9 MG/DL (1.5-2.4); POTASSIUM 4.7 MMOL/L (3.5-5.1); SODIUM 137 MMOL/L (135-145); TOTAL CARBON DIOXIDE 27.8 MMOL/L (24-32); eCRCL 47 ML/MIN; eGFR 82 ML/MIN
[2024-04-03] MEDS: furosemide 20 MG/2 ML vial IV SCH (09:58)
[2024-04-03] MEDS ORDERED: PCA WASTE DOCUMENTATION 1 MG ML MC PRN (14:00)
[2024-04-03] MEDS: PCA WASTE DOCUMENTATION 1 MG ML MC SCH (14:05)
[2024-04-04] VITALS (12 sets, daily range): BP systolic 87–106; BP diastolic 50–56; PULSE 74–99; RESP 12–18; TEMP 96.5–98.9; O2SAT 97–100
[2024-04-04 08:26] LABS: ALBUMIN 2.3 G/DL (3.4-5.0); ANION GAP 6 (8-16); BLOOD UREA NITROGEN 32 MG/DL (7-18); CALCIUM 9.2 MG/DL (8.5-10.1); CHLORIDE 103 MMOL/L (99-107); CREATININE 0.89 MG/DL (0.40-0.90); GLUCOSE 198 MG/DL (70-104); MAGNESIUM 1.9 MG/DL (1.5-2.4); POTASSIUM 4.3 MMOL/L (3.5-5.1); SODIUM 137 MMOL/L (135-145); TOTAL CARBON DIOXIDE 28.2 MMOL/L (24-32); eCRCL 39 ML/MIN; eGFR 66 ML/MIN
[2024-04-04 08:42] LABS: BASOPHILS % (AUTO) 0.6 % (0-1); EOSINOPHILS # (AUTO) 0.2 X10'3 (0-0.9); EOSINOPHILS % (AUTO) 2.8 % (0-6); HEMATOCRIT 28.8 % (35.0-45.0); HEMOGLOBIN 8.8 g/dl (12.0-16.0); LYMPHOCYTES # (AUTO) 1.6 X10'3 (1.1-4.8); LYMPHOCYTES % (AUTO) 21.1 % (21-51); MEAN CORPUSCULAR HEMOGLOBIN 26.7 PG (27.0-31.0); MEAN CORPUSCULAR HGB CONC 30.7 g/dL (33.0-36.5); MEAN CORPUSCULAR VOLUME 86.9 FL (78-98); MEAN PLATELET VOLUME 7.4 FL (7.4-10.4); MONOCYTES # (AUTO) 0.4 X10'3 (0-0.9); NEUTROPHILS # (AUTO) 5.4 X10'3 (1.8-7.7); NEUTROPHILS % (AUTO) 70.5 % (42-75); PLATELET COUNT 441 X10'3 (140-440); RED BLOOD COUNT 3.32 X10'6 (4.20-5.60); RED CELL DISTRIBUTION WIDTH 23.1 % (11.5-14.5); WHITE BLOOD COUNT 7.7 X10'3 (4.5-11.0)
[2024-04-04 10:24] LABS: PLATELET ESTIMATE INCREASED
[2024-04-04 10:25] LABS: ANISOCYTOSIS 3+; ELLIPTOCYTES FEW; TEAR DROP CELLS FEW
[2024-04-04] MEDS: HYDROmorph/NS 0.2 mg/ml PCA 100 ML IV SCH (14:56)
[2024-04-04] MEDS: metroNIDAZOLE-Flagyl 500mg/NS 100 ML IV SCH (16:45)
[2024-04-04] MEDS: albuterol 2.5 MG/3 ML nebule NEB PRN (21:17)
[2024-04-04] MEDS: linezolid 600mg/300ml PREMIX 300 ML IV SCH (22:18)
[2024-04-05] VITALS (12 sets, daily range): BP systolic 84–114; BP diastolic 40–65; PULSE 80–121; RESP 14–23; TEMP 96.7–98.4; O2SAT 93–100
[2024-04-05 08:35] LABS: BASOPHILS % (AUTO) 0.4 % (0-1); EOSINOPHILS # (AUTO) 0.2 X10'3 (0-0.9); EOSINOPHILS % (AUTO) 1.8 % (0-6); HEMATOCRIT 26.7 % (35.0-45.0); HEMOGLOBIN 8.3 g/dl (12.0-16.0); LYMPHOCYTES # (AUTO) 1.2 X10'3 (1.1-4.8); LYMPHOCYTES % (AUTO) 10.4 % (21-51); MEAN CORPUSCULAR HEMOGLOBIN 26.2 PG (27.0-31.0); MEAN CORPUSCULAR HGB CONC 31.2 g/dL (33.0-36.5); MEAN CORPUSCULAR VOLUME 84.1 FL (78-98); MEAN PLATELET VOLUME 7.4 FL (7.4-10.4); MONOCYTES # (AUTO) 0.5 X10'3 (0-0.9); MONOCYTES % (AUTO) 4.3 % (2-12); NEUTROPHILS % (AUTO) 83.1 % (42-75); PLATELET COUNT 424 X10'3 (140-440); RED BLOOD COUNT 3.17 X10'6 (4.20-5.60); RED CELL DISTRIBUTION WIDTH 21.8 % (11.5-14.5)
[2024-04-05 08:42] LABS: ALBUMIN 2.2 G/DL (3.4-5.0); ANION GAP 8 (8-16); BLOOD UREA NITROGEN 29 MG/DL (7-18); BUN/CREATININE RATIO 37.2 (10.0-20.0); CHLORIDE 104 MMOL/L (99-107); CREATININE 0.78 MG/DL (0.40-0.90); GLUCOSE 179 MG/DL (70-104); MAGNESIUM 1.9 MG/DL (1.5-2.4); POTASSIUM 4.4 MMOL/L (3.5-5.1); SODIUM 139 MMOL/L (135-145); TOTAL CARBON DIOXIDE 26.9 MMOL/L (24-32); eCRCL 44 ML/MIN; eGFR 77 ML/MIN
[2024-04-05 10:54] LABS: HYPOCHROMASIA 1+; PLATELET ESTIMATE NORMAL; STOMATOCYTES FEW; TEAR DROP CELLS 1+
[2024-04-05] MEDS ORDERED: iohexol 350MG/ML 100ml bottle IV ONE (20:09)
[2024-04-05 20:37] LABS: D-DIMER 0.37 MG/L FEU (0-0.50); INR 1.2 INR; PROTHROMBIN TIME 12.5 SECONDS (9.0-12.0)
[2024-04-05] MEDS ORDERED: morphine 2 MG/ML inj. syringe IV PRN (20:50)
[2024-04-05] MEDS: normal saline 1000ml 1,000 ML IV ONE (21:01)
[2024-04-06] VITALS (7 sets, daily range): BP systolic 93–123; BP diastolic 42–65; PULSE 18–101; RESP 10–21; TEMP 97.2–98.8; O2SAT 99–100
[2024-04-06] MEDS: mag hydrox/Alum hydrox/simeth 30ml oral suspension PO PRN (00:55)
[2024-04-06 09:21] LABS: BASOPHILS # (AUTO) 0.1 X10'3 (0-0.2); BASOPHILS % (AUTO) 0.6 % (0-1); EOSINOPHILS # (AUTO) 0.2 X10'3 (0-0.9); EOSINOPHILS % (AUTO) 2.7 % (0-6); HEMATOCRIT 25.1 % (35.0-45.0); LYMPHOCYTES # (AUTO) 1.4 X10'3 (1.1-4.8); LYMPHOCYTES % (AUTO) 15.2 % (21-51); MEAN CORPUSCULAR HEMOGLOBIN 26.8 PG (27.0-31.0); MEAN CORPUSCULAR HGB CONC 31.8 g/dL (33.0-36.5); MEAN CORPUSCULAR VOLUME 84.4 FL (78-98); MEAN PLATELET VOLUME 7.3 FL (7.4-10.4); MONOCYTES # (AUTO) 0.6 X10'3 (0-0.9); MONOCYTES % (AUTO) 6.7 % (2-12); NEUTROPHILS % (AUTO) 74.8 % (42-75); PLATELET COUNT 395 X10'3 (140-440); RED BLOOD COUNT 2.97 X10'6 (4.20-5.60); RED CELL DISTRIBUTION WIDTH 21.6 % (11.5-14.5); WHITE BLOOD COUNT 9.3 X10'3 (4.5-11.0)
[2024-04-06 09:32] LABS: ALANINE AMINOTRANSFERASE 9 U/L (12-78); ALBUMIN 2.2 G/DL (3.4-5.0); ALBUMIN/GLOBULIN RATIO 0.5 (1.1-1.5); ALKALINE PHOSPHATASE 74 IU/L (46-116); ANION GAP 6 (8-16); ASPARTATE AMINO TRANSFERASE 9 U/L (10-37); BILIRUBIN,TOTAL 0.2 MG/DL (0.1-1.0); BLOOD UREA NITROGEN 23 MG/DL (7-18); BUN/CREATININE RATIO 33.8 (10.0-20.0); CALCIUM 8.8 MG/DL (8.5-10.1); CHLORIDE 105 MMOL/L (99-107); CREATININE 0.68 MG/DL (0.40-0.90); GLUCOSE 160 MG/DL (70-104); POTASSIUM 4.4 MMOL/L (3.5-5.1); SODIUM 138 MMOL/L (135-145); TOTAL CARBON DIOXIDE 27.1 MMOL/L (24-32); eCRCL 51 ML/MIN; eGFR 90 ML/MIN
[2024-04-07] VITALS (7 sets, daily range): BP systolic 90–145; BP diastolic 48–68; PULSE 54–107; RESP 18–23; TEMP 96.6–99.5; O2SAT 97–98
[2024-04-07 07:50] LABS: BASOPHILS % (AUTO) 0.6 % (0-1); EOSINOPHILS # (AUTO) 0.2 X10'3 (0-0.9); EOSINOPHILS % (AUTO) 3.3 % (0-6); HEMATOCRIT 23.6 % (35.0-45.0); HEMOGLOBIN 7.3 g/dl (12.0-16.0); LYMPHOCYTES # (AUTO) 1.4 X10'3 (1.1-4.8); LYMPHOCYTES % (AUTO) 20.3 % (21-51); MEAN CORPUSCULAR HEMOGLOBIN 26.6 PG (27.0-31.0); MEAN CORPUSCULAR HGB CONC 30.9 g/dL (33.0-36.5); MEAN CORPUSCULAR VOLUME 86.2 FL (78-98); MEAN PLATELET VOLUME 7.5 FL (7.4-10.4); MONOCYTES # (AUTO) 0.6 X10'3 (0-0.9); NEUTROPHILS # (AUTO) 4.7 X10'3 (1.8-7.7); NEUTROPHILS % (AUTO) 66.8 % (42-75); PLATELET COUNT 332 X10'3 (140-440); RED BLOOD COUNT 2.74 X10'6 (4.20-5.60); RED CELL DISTRIBUTION WIDTH 21.4 % (11.5-14.5)
[2024-04-07 08:20] LABS: ALANINE AMINOTRANSFERASE 9 U/L (12-78); ALBUMIN/GLOBULIN RATIO 0.5 (1.1-1.5); ALKALINE PHOSPHATASE 73 IU/L (46-116); ANION GAP 8 (8-16); ASPARTATE AMINO TRANSFERASE 10 U/L (10-37); BILIRUBIN,TOTAL 0.1 MG/DL (0.1-1.0); BLOOD UREA NITROGEN 24 MG/DL (7-18); BUN/CREATININE RATIO 33.8 (10.0-20.0); CALCIUM 8.8 MG/DL (8.5-10.1); CHLORIDE 108 MMOL/L (99-107); CREATININE 0.71 MG/DL (0.40-0.90); GLUCOSE 149 MG/DL (70-104); MAGNESIUM 1.9 MG/DL (1.5-2.4); POTASSIUM 3.9 MMOL/L (3.5-5.1); SODIUM 138 MMOL/L (135-145); TOTAL CARBON DIOXIDE 22.2 MMOL/L (24-32); TOTAL PROTEIN 6.4 G/DL (6.4-8.2); eCRCL 49 ML/MIN; eGFR 86 ML/MIN
[2024-04-07] MEDS: HYDROmorphone inj. 0.5 MG/0.5 ML DISP.SYRIN IV PRN (12:20)
[2024-04-07] MEDS: oxyCODONE/APAP 10/325mg tablet PO PRN (13:23)
[2024-04-07] MEDS: cefepime 2g/NS 100ml ADVANTAGE 100 ML IV SCH (15:39)
[2024-04-08] VITALS (8 sets, daily range): BP systolic 91–110; BP diastolic 43–62; PULSE 85–102; RESP 16–26; TEMP 97.2–99.1; O2SAT 95–98
[2024-04-08] MEDS: Dakins solution (1/4 strength) 473ml solution TP SCH ×2 (01:00→16:32)
[2024-04-08 07:47] LABS: BASOPHILS % (AUTO) 0.5 % (0-1); EOSINOPHILS # (AUTO) 0.2 X10'3 (0-0.9); EOSINOPHILS % (AUTO) 2.5 % (0-6); HEMATOCRIT 23.1 % (35.0-45.0); HEMOGLOBIN 7.3 g/dl (12.0-16.0); LYMPHOCYTES # (AUTO) 1.5 X10'3 (1.1-4.8); LYMPHOCYTES % (AUTO) 19.8 % (21-51); MEAN CORPUSCULAR HEMOGLOBIN 26.7 PG (27.0-31.0); MEAN CORPUSCULAR HGB CONC 31.7 g/dL (33.0-36.5); MEAN CORPUSCULAR VOLUME 84.2 FL (78-98); MEAN PLATELET VOLUME 7.3 FL (7.4-10.4); MONOCYTES # (AUTO) 0.6 X10'3 (0-0.9); NEUTROPHILS # (AUTO) 5.4 X10'3 (1.8-7.7); NEUTROPHILS % (AUTO) 69.2 % (42-75); PLATELET COUNT 342 X10'3 (140-440); RED BLOOD COUNT 2.75 X10'6 (4.20-5.60); RED CELL DISTRIBUTION WIDTH 20.4 % (11.5-14.5); WHITE BLOOD COUNT 7.8 X10'3 (4.5-11.0)
[2024-04-08 08:08] LABS: ALANINE AMINOTRANSFERASE 11 U/L (12-78); ALBUMIN 2.1 G/DL (3.4-5.0); ALBUMIN/GLOBULIN RATIO 0.5 (1.1-1.5); ALKALINE PHOSPHATASE 70 IU/L (46-116); ANION GAP 7 (8-16); ASPARTATE AMINO TRANSFERASE 8 U/L (10-37); BILIRUBIN,TOTAL 0.2 MG/DL (0.1-1.0); BLOOD UREA NITROGEN 19 MG/DL (7-18); BUN/CREATININE RATIO 27.5 (10.0-20.0); CALCIUM 8.5 MG/DL (8.5-10.1); CHLORIDE 107 MMOL/L (99-107); CREATININE 0.69 MG/DL (0.40-0.90); GLUCOSE 155 MG/DL (70-104); POTASSIUM 3.6 MMOL/L (3.5-5.1); SODIUM 137 MMOL/L (135-145); TOTAL PROTEIN 6.6 G/DL (6.4-8.2); eCRCL 50 ML/MIN; eGFR 89 ML/MIN
[2024-04-08] MEDS: levoFLOXACIN 750MG TABLET PO SCH (11:00)
[2024-04-08] MEDS: HYDROmorphone 1 mg/ml syringe IV PRN (12:54)
[2024-04-08] MEDS: chloestyramine/aspartame 4gm packet PO SCH (16:31)
[2024-04-09] VITALS (7 sets, daily range): BP systolic 105–113; BP diastolic 41–58; PULSE 93–101; RESP 16–19; TEMP 97.3–98.8; O2SAT 94–99
[2024-04-09] MEDS ORDERED: oxyCODONE/APAP 10/325mg tablet PO PRN (11:50)
[2024-04-09] MEDS: HYDROmorphone 1 mg/ml syringe IV PRN (13:28)
[2024-04-09] MEDS: gabapentin 300mg capsule PO SCH (16:54)
[2024-04-09] MEDS ORDERED: gabapentin 300mg capsule PO SCH (20:00)
[2024-04-10] VITALS (7 sets, daily range): BP systolic 96–110; BP diastolic 42–65; PULSE 84–104; RESP 14–18; TEMP 97.3–98.4; O2SAT 94–100
[2024-04-10] MEDS: morphine 2 MG/ML inj. syringe IM ONE (07:49)
[2024-04-10] MEDS ORDERED: iohexol 350MG/ML 100ml bottle IV ONE (11:38)
[2024-04-10] MEDS: morphine 2 MG/ML inj. syringe IV PRN (12:19)
[2024-04-10] MEDS: enoxaparin 100mg/ml syringe SUBCUT ONE (14:25)
[2024-04-10] MEDS ORDERED: HEPARIN DRIP DVT/PE -**PHARMACIST TO DOSE IV ONE (16:40)
[2024-04-10] MEDS ORDERED: heparin 10,000 units/1 ML INJ IV PRN (16:40)
[2024-04-10] MEDS ORDERED: rivaroxaban 20mg tablet PO SCH (17:00)
[2024-04-10] MEDS: heparin 10,000 units/1 ML INJ IV ONE (17:12)
[2024-04-10] MEDS: heparin 25,000 UNIT/250ml bag 250 ML IV PRN (17:14)
[2024-04-10] MEDS: MESSAGE TO NURSING IV ONE (17:17)
[2024-04-10] MEDS ORDERED: rivaroxaban 15mg tablet PO SCH ×2 (17:30→20:00)
[2024-04-10] MEDS: oxyCODONE/APAP 10/325mg tablet PO PRN (22:58)
[2024-04-11 02:00] VITALS: BP 96/48; PULSE 94; RESP 16; TEMP 97.7; O2SAT 98
[2024-04-11] MEDS: morphine 2 MG/ML inj. syringe IV PRN (02:34)
[2024-04-11] MEDS: enoxaparin 60mg/0.6ml syringe SUBCUT SCH (08:00)
[2024-04-11 10:35] LABS: ALANINE AMINOTRANSFERASE 10 U/L (12-78); ALBUMIN 2.3 G/DL (3.4-5.0); ALBUMIN/GLOBULIN RATIO 0.5 (1.1-1.5); ALKALINE PHOSPHATASE 64 IU/L (46-116); ANION GAP 9 (8-16); ASPARTATE AMINO TRANSFERASE 9 U/L (10-37); BILIRUBIN,TOTAL 0.2 MG/DL (0.1-1.0); BLOOD UREA NITROGEN 17 MG/DL (7-18); BUN/CREATININE RATIO 25.8 (10.0-20.0); CALCIUM 8.7 MG/DL (8.5-10.1); CHLORIDE 103 MMOL/L (99-107); CREATININE 0.66 MG/DL (0.40-0.90); GLUCOSE 182 MG/DL (70-104); SODIUM 134 MMOL/L (135-145); TOTAL CARBON DIOXIDE 21.6 MMOL/L (24-32); TOTAL PROTEIN 7.1 G/DL (6.4-8.2); eCRCL 52 ML/MIN; eGFR > 90 ML/MIN
[2024-04-11 10:37] LABS: POTASSIUM 4.3 MMOL/L (3.5-5.1)
[2024-04-11 10:50] VITALS: PULSE 108; RESP 18; O2SAT 97
[2024-04-11 11:00] VITALS: BP 129/54; PULSE 113; RESP 21; TEMP 98.8; O2SAT 98
[2024-04-11] MEDS ORDERED: naloxone 0.4 mg/ml inj IV PRN (11:45)
[2024-04-11] MEDS: HYDROmorph/NS 0.2 mg/ml PCA 100 ML IV SCH (12:00)
[2024-04-11 12:14] LABS: BASOPHILS # (AUTO) 0.1 X10'3 (0-0.2); BASOPHILS % (AUTO) 0.8 % (0-1); EOSINOPHILS # (AUTO) 0.2 X10'3 (0-0.9); EOSINOPHILS % (AUTO) 1.5 % (0-6); HEMATOCRIT 23.8 % (35.0-45.0); HEMOGLOBIN 7.4 g/dl (12.0-16.0); LYMPHOCYTES # (AUTO) 1.6 X10'3 (1.1-4.8); LYMPHOCYTES % (AUTO) 13.2 % (21-51); MEAN CORPUSCULAR HEMOGLOBIN 26.4 PG (27.0-31.0); MEAN CORPUSCULAR HGB CONC 31.2 g/dL (33.0-36.5); MEAN CORPUSCULAR VOLUME 84.7 FL (78-98); MEAN PLATELET VOLUME 8.1 FL (7.4-10.4); MONOCYTES % (AUTO) 8.5 % (2-12); NEUTROPHILS # (AUTO) 9.4 X10'3 (1.8-7.7); RED BLOOD COUNT 2.81 X10'6 (4.20-5.60); RED CELL DISTRIBUTION WIDTH 21.3 % (11.5-14.5); WHITE BLOOD COUNT 12.3 X10'3 (4.5-11.0)
[2024-04-11 15:00] VITALS: BP 98/42; PULSE 99; RESP 19; TEMP 97.4; O2SAT 97
[2024-04-11 18:00] VITALS: BP 92/54; PULSE 103; RESP 20; TEMP 97.4; O2SAT 99
[2024-04-11] MEDS: fluconazole 150mg tablet PO SCH (19:19)
[2024-04-11] MEDS: nystatin 15 GM powder TP SCH (21:59)
[2024-04-11 22:00] VITALS: BP 85/44; PULSE 100; RESP 20; TEMP 98.1; O2SAT 99
[2024-04-12] VITALS (14 sets, daily range): BP systolic 92–104; BP diastolic 39–63; PULSE 78–98; RESP 14–20; TEMP 97.4–99.2; O2SAT 93–99
[2024-04-12] MEDS: lactobacillus rhamnosus 10,000 MMU CELLS/CAPSULE PO ONE (03:00)
[2024-04-12 10:17] LABS: BASOPHILS % (AUTO) 0.6 % (0-1); EOSINOPHILS # (AUTO) 0.2 X10'3 (0-0.9); EOSINOPHILS % (AUTO) 1.8 % (0-6); LYMPHOCYTES # (AUTO) 1.4 X10'3 (1.1-4.8); LYMPHOCYTES % (AUTO) 16.8 % (21-51); MEAN CORPUSCULAR HEMOGLOBIN 26.7 PG (27.0-31.0); MEAN CORPUSCULAR HGB CONC 31.6 g/dL (33.0-36.5); MEAN CORPUSCULAR VOLUME 84.6 FL (78-98); MEAN PLATELET VOLUME 7.4 FL (7.4-10.4); MONOCYTES # (AUTO) 0.9 X10'3 (0-0.9); MONOCYTES % (AUTO) 10.9 % (2-12); NEUTROPHILS % (AUTO) 69.9 % (42-75); PLATELET COUNT 401 X10'3 (140-440); RED BLOOD COUNT 2.53 X10'6 (4.20-5.60); RED CELL DISTRIBUTION WIDTH 20.3 % (11.5-14.5); WHITE BLOOD COUNT 8.6 X10'3 (4.5-11.0)
[2024-04-12 10:19] LABS: HEMATOCRIT 21.4 % (35.0-45.0); HEMOGLOBIN 6.7 g/dl (12.0-16.0)
[2024-04-12 10:43] LABS: ALANINE AMINOTRANSFERASE 9 U/L (12-78); ALBUMIN 2.1 G/DL (3.4-5.0); ALBUMIN/GLOBULIN RATIO 0.5 (1.1-1.5); ALKALINE PHOSPHATASE 60 IU/L (46-116); ANION GAP 7 (8-16); ASPARTATE AMINO TRANSFERASE 5 U/L (10-37); BILIRUBIN,TOTAL 0.1 MG/DL (0.1-1.0); BLOOD UREA NITROGEN 14 MG/DL (7-18); BUN/CREATININE RATIO 17.3 (10.0-20.0); CALCIUM 8.5 MG/DL (8.5-10.1); CHLORIDE 105 MMOL/L (99-107); CREATININE 0.81 MG/DL (0.40-0.90); GLUCOSE 179 MG/DL (70-104); POTASSIUM 4.1 MMOL/L (3.5-5.1); SODIUM 134 MMOL/L (135-145); TOTAL CARBON DIOXIDE 22.3 MMOL/L (24-32); TOTAL PROTEIN 6.4 G/DL (6.4-8.2); eCRCL 43 ML/MIN; eGFR 74 ML/MIN
[2024-04-12 15:11] LABS: ANISOCYTOSIS 3+; HYPOCHROMASIA 2+; PLATELET ESTIMATE NORMAL
[2024-04-12 15:12] LABS: ELLIPTOCYTES FEW
[2024-04-12] MEDS: iron sucrose complex injection 200 MG in normal saline 100ml IV soln 100 ML IV SCH (16:28)
[2024-04-12] MEDS: lactose-reduced food (Ensure Enlive) - 237ml bottle PO SCH (17:05)
[2024-04-12 19:04] LABS: HEMATOCRIT 26.5 % (35.0-45.0); HEMOGLOBIN 8.5 g/dl (12.0-16.0); MEAN CORPUSCULAR HEMOGLOBIN 27.3 PG (27.0-31.0); MEAN CORPUSCULAR HGB CONC 32.2 g/dL (33.0-36.5); MEAN CORPUSCULAR VOLUME 84.7 FL (78-98); MEAN PLATELET VOLUME 7.4 FL (7.4-10.4); PLATELET COUNT 436 X10'3 (140-440); RED BLOOD COUNT 3.13 X10'6 (4.20-5.60); RED CELL DISTRIBUTION WIDTH 17.8 % (11.5-14.5); WHITE BLOOD COUNT 8.6 X10'3 (4.5-11.0)
[2024-04-13] VITALS (10 sets, daily range): BP systolic 91–123; BP diastolic 39–66; PULSE 87–115; RESP 13–20; TEMP 97.4–99; O2SAT 96–99
[2024-04-13 00:25] LABS: HEMATOCRIT 24.4 % (35.0-45.0); MEAN CORPUSCULAR HEMOGLOBIN 27.5 PG (27.0-31.0); MEAN CORPUSCULAR HGB CONC 32.8 g/dL (33.0-36.5); MEAN CORPUSCULAR VOLUME 83.8 FL (78-98); MEAN PLATELET VOLUME 7.5 FL (7.4-10.4); PLATELET COUNT 404 X10'3 (140-440); RED BLOOD COUNT 2.91 X10'6 (4.20-5.60); RED CELL DISTRIBUTION WIDTH 17.3 % (11.5-14.5); WHITE BLOOD COUNT 8.2 X10'3 (4.5-11.0)
[2024-04-13 00:51] LABS: ANISOCYTOSIS 1+; PLATELET ESTIMATE NORMAL; POLYCHROMASIA FEW
[2024-04-13 00:52] LABS: ELLIPTOCYTES 1+; SCHISTOCYTES FEW
[2024-04-13] MEDS ORDERED: levoFLOXACIN 750MG TABLET PO SCH (16:14)
[2024-04-13] MEDS: pantoprazole 40 MG vial IV STA (16:33)
[2024-04-13] MEDS: gabapentin 300mg capsule PO SCH (21:37)
[2024-04-14] VITALS (9 sets, daily range): BP systolic 96–121; BP diastolic 52–59; PULSE 81–108; RESP 13–20; TEMP 97.2–98; O2SAT 93–99
[2024-04-14 06:52] LABS: ALBUMIN 2.3 G/DL (3.4-5.0); ANION GAP 8 (8-16); BLOOD UREA NITROGEN 8 MG/DL (7-18); BUN/CREATININE RATIO 12.1 (10.0-20.0); CALCIUM 9.1 MG/DL (8.5-10.1); CHLORIDE 106 MMOL/L (99-107); CREATININE 0.66 MG/DL (0.40-0.90); GLUCOSE 148 MG/DL (70-104); POTASSIUM 4.1 MMOL/L (3.5-5.1); SODIUM 136 MMOL/L (135-145); TOTAL CARBON DIOXIDE 22.2 MMOL/L (24-32); eCRCL 52 ML/MIN; eGFR > 90 ML/MIN
[2024-04-14] MEDS: pantoprazole 40mg Tablet.DR PO SCH (07:30)
[2024-04-15] VITALS (8 sets, daily range): BP systolic 101–122; BP diastolic 53–64; PULSE 88–98; RESP 13–18; TEMP 97.8–98.8; O2SAT 97–100
[2024-04-15 08:40] LABS: ALBUMIN 2.2 G/DL (3.4-5.0); ANION GAP 7 (8-16); BLOOD UREA NITROGEN 13 MG/DL (7-18); BUN/CREATININE RATIO 18.1 (10.0-20.0); CALCIUM 8.8 MG/DL (8.5-10.1); CHLORIDE 106 MMOL/L (99-107); CREATININE 0.72 MG/DL (0.40-0.90); GLUCOSE 126 MG/DL (70-104); SODIUM 136 MMOL/L (135-145); TOTAL CARBON DIOXIDE 23.1 MMOL/L (24-32); eCRCL 48 ML/MIN; eGFR 84 ML/MIN
[2024-04-15] MEDS ORDERED: ketorolac trometh 15mg/ml vial 15 MG/ML ML IM ONE (11:00)
[2024-04-15] MEDS: ketorolac trometh 15mg/ml vial 15 MG/ML ML IV ONE (11:52)
[2024-04-15] MEDS: PCA WASTE DOCUMENTATION 1 MG ML MC SCH (23:06)
[2024-04-16] VITALS (7 sets, daily range): BP systolic 100–123; BP diastolic 58–73; PULSE 91–95; RESP 15–18; TEMP 97.6–98.6; O2SAT 98
[2024-04-16 06:34] LABS: BASOPHILS % (AUTO) 0.4 % (0-1); EOSINOPHILS # (AUTO) 0.2 X10'3 (0-0.9); EOSINOPHILS % (AUTO) 3.1 % (0-6); HEMATOCRIT 27.7 % (35.0-45.0); LYMPHOCYTES # (AUTO) 1.2 X10'3 (1.1-4.8); LYMPHOCYTES % (AUTO) 19.2 % (21-51); MEAN CORPUSCULAR HEMOGLOBIN 27.3 PG (27.0-31.0); MEAN CORPUSCULAR HGB CONC 32.4 g/dL (33.0-36.5); MEAN CORPUSCULAR VOLUME 84.3 FL (78-98); MEAN PLATELET VOLUME 7.3 FL (7.4-10.4); MONOCYTES # (AUTO) 0.6 X10'3 (0-0.9); MONOCYTES % (AUTO) 10.4 % (2-12); NEUTROPHILS # (AUTO) 4.1 X10'3 (1.8-7.7); NEUTROPHILS % (AUTO) 66.9 % (42-75); PLATELET COUNT 440 X10'3 (140-440); RED BLOOD COUNT 3.29 X10'6 (4.20-5.60); RED CELL DISTRIBUTION WIDTH 17.9 % (11.5-14.5); WHITE BLOOD COUNT 6.1 X10'3 (4.5-11.0)
[2024-04-16 06:53] LABS: ALBUMIN 2.5 G/DL (3.4-5.0); ANION GAP 11 (8-16); BLOOD UREA NITROGEN 20 MG/DL (7-18); BUN/CREATININE RATIO 29.4 (10.0-20.0); CHLORIDE 106 MMOL/L (99-107); CREATININE 0.68 MG/DL (0.40-0.90); GLUCOSE 161 MG/DL (70-104); POTASSIUM 4.5 MMOL/L (3.5-5.1); SODIUM 139 MMOL/L (135-145); TOTAL CARBON DIOXIDE 22.4 MMOL/L (24-32); eCRCL 51 ML/MIN; eGFR 90 ML/MIN
[2024-04-16] MEDS ORDERED: naphazoline/pheniramine eye 1 DROP BOTTLE EACHEYE PRN (13:00)
[2024-04-16] MEDS: methadone 10mg tablet PO SCH (14:05)
[2024-04-16] MEDS: oxyCODONE/APAP 10/325mg tablet PO PRN (17:38)
[2024-04-17] VITALS (7 sets, daily range): BP systolic 103–123; BP diastolic 58–66; PULSE 88–102; RESP 14–18; TEMP 97.6–98.3; O2SAT 95–98
[2024-04-17 05:59] LABS: ALBUMIN 2.8 G/DL (3.4-5.0); ANION GAP 9 (8-16); BLOOD UREA NITROGEN 19 MG/DL (7-18); BUN/CREATININE RATIO 25.7 (10.0-20.0); CALCIUM 9.3 MG/DL (8.5-10.1); CHLORIDE 105 MMOL/L (99-107); CREATININE 0.74 MG/DL (0.40-0.90); GLUCOSE 149 MG/DL (70-104); POTASSIUM 4.5 MMOL/L (3.5-5.1); SODIUM 138 MMOL/L (135-145); TOTAL CARBON DIOXIDE 24.2 MMOL/L (24-32); eCRCL 47 ML/MIN; eGFR 82 ML/MIN
[2024-04-17 08:58] LABS: BASOPHILS # (AUTO) 0.1 X10'3 (0-0.2); EOSINOPHILS # (AUTO) 0.3 X10'3 (0-0.9); HEMATOCRIT 30.2 % (35.0-45.0); HEMOGLOBIN 9.6 g/dl (12.0-16.0); RED BLOOD COUNT 3.49 X10'6 (4.20-5.60)
[2024-04-17 09:00] LABS: BASOPHILS % (AUTO) 0.8 % (0-1); LYMPHOCYTES # (AUTO) 1.9 X10'3 (1.1-4.8); LYMPHOCYTES % (AUTO) 25.7 % (21-51); MEAN CORPUSCULAR HEMOGLOBIN 27.5 PG (27.0-31.0); MEAN CORPUSCULAR HGB CONC 31.7 g/dL (33.0-36.5); MEAN CORPUSCULAR VOLUME 86.5 FL (78-98); MEAN PLATELET VOLUME 7.8 FL (7.4-10.4); NEUTROPHILS # (AUTO) 4.3 X10'3 (1.8-7.7); NEUTROPHILS % (AUTO) 56.5 % (42-75); PLATELET COUNT 495 X10'3 (140-440); RED CELL DISTRIBUTION WIDTH 18.1 % (11.5-14.5); WHITE BLOOD COUNT 7.5 X10'3 (4.5-11.0)
[2024-04-18 06:43] VITALS: BP 97/63; PULSE 84; RESP 16; TEMP 97.9; O2SAT 98
[2024-04-18 07:40] LABS: EOSINOPHILS # (AUTO) 0.3 X10'3 (0-0.9); HEMOGLOBIN 9.3 g/dl (12.0-16.0); MEAN PLATELET VOLUME 7.8 FL (7.4-10.4); MONOCYTES # (AUTO) 1.1 X10'3 (0-0.9); NEUTROPHILS # (AUTO) 3.9 X10'3 (1.8-7.7)
[2024-04-18 07:41] LABS: BASOPHILS % (AUTO) 0.6 % (0-1); EOSINOPHILS % (AUTO) 3.8 % (0-6); HEMATOCRIT 28.8 % (35.0-45.0); LYMPHOCYTES # (AUTO) 2.4 X10'3 (1.1-4.8); LYMPHOCYTES % (AUTO) 30.3 % (21-51); MEAN CORPUSCULAR HEMOGLOBIN 27.8 PG (27.0-31.0); MEAN CORPUSCULAR HGB CONC 32.4 g/dL (33.0-36.5); MEAN CORPUSCULAR VOLUME 85.9 FL (78-98); MONOCYTES % (AUTO) 14.7 % (2-12); NEUTROPHILS % (AUTO) 50.6 % (42-75); PLATELET COUNT 492 X10'3 (140-440); RED BLOOD COUNT 3.35 X10'6 (4.20-5.60); RED CELL DISTRIBUTION WIDTH 18.7 % (11.5-14.5); WHITE BLOOD COUNT 7.8 X10'3 (4.5-11.0)
[2024-04-18 08:36] LABS: ALBUMIN 2.9 G/DL (3.4-5.0); ANION GAP 10 (8-16); BLOOD UREA NITROGEN 22 MG/DL (7-18); BUN/CREATININE RATIO 30.6 (10.0-20.0); CALCIUM 9.7 MG/DL (8.5-10.1); CHLORIDE 102 MMOL/L (99-107); CREATININE 0.72 MG/DL (0.40-0.90); GLUCOSE 167 MG/DL (70-104); POTASSIUM 4.8 MMOL/L (3.5-5.1); SODIUM 137 MMOL/L (135-145); TOTAL CARBON DIOXIDE 25.1 MMOL/L (24-32); eCRCL 48 ML/MIN; eGFR 84 ML/MIN
[2024-04-18 10:00] VITALS: BP 109/57; PULSE 83; RESP 15; TEMP 98.1; O2SAT 97
[2024-04-18] MEDS: fentaNYL 12 MCG/hour patch.TD72 TD SCH (10:06)
[2024-04-18 12:13] LABS: ANISOCYTOSIS 2+; ELLIPTOCYTES FEW; PLATELET ESTIMATE INCREASED; POLYCHROMASIA FEW; STOMATOCYTES FEW
[2024-04-18 12:14] LABS: SCHISTOCYTES FEW
[2024-04-18 13:09] VITALS: PULSE 89; RESP 16; O2SAT 97
[2024-04-18] MEDS ORDERED: oxyCODONE/APAP 5-325mg tablet PO PRN (13:35)
[2024-04-18 18:00] VITALS: BP 106/52; PULSE 97; RESP 16; TEMP 97.9; O2SAT 95
[2024-04-18 22:00] VITALS: BP 113/68; PULSE 100; RESP 19; TEMP 98.7; O2SAT 99
[2024-04-18] MEDS ORDERED: chloestyramine/aspartame 4gm packet PO SCH (22:15)
[2024-04-19] VITALS (7 sets, daily range): BP systolic 85–120; BP diastolic 42–63; PULSE 67–101; RESP 12–17; TEMP 97.8–99.3; O2SAT 96–98
[2024-04-19] MEDS: proMETHazine 25mg tablet PO PRN (01:19)
[2024-04-19 07:11] LABS: BASOPHILS % (AUTO) 0.4 % (0-1); EOSINOPHILS # (AUTO) 0.3 X10'3 (0-0.9); EOSINOPHILS % (AUTO) 3.4 % (0-6); HEMATOCRIT 29.5 % (35.0-45.0); HEMOGLOBIN 9.5 g/dl (12.0-16.0); LYMPHOCYTES # (AUTO) 2.7 X10'3 (1.1-4.8); LYMPHOCYTES % (AUTO) 28.6 % (21-51); MEAN CORPUSCULAR HEMOGLOBIN 28.1 PG (27.0-31.0); MEAN CORPUSCULAR HGB CONC 32.2 g/dL (33.0-36.5); MEAN CORPUSCULAR VOLUME 87.1 FL (78-98); MEAN PLATELET VOLUME 7.8 FL (7.4-10.4); MONOCYTES # (AUTO) 1.5 X10'3 (0-0.9); NEUTROPHILS # (AUTO) 4.9 X10'3 (1.8-7.7); NEUTROPHILS % (AUTO) 51.6 % (42-75); PLATELET COUNT 500 X10'3 (140-440); RED BLOOD COUNT 3.39 X10'6 (4.20-5.60); WHITE BLOOD COUNT 9.5 X10'3 (4.5-11.0)
[2024-04-19 07:28] LABS: ALBUMIN 2.8 G/DL (3.4-5.0); ANION GAP 6 (8-16); BLOOD UREA NITROGEN 24 MG/DL (7-18); BUN/CREATININE RATIO 28.2 (10.0-20.0); CALCIUM 9.6 MG/DL (8.5-10.1); CHLORIDE 99 MMOL/L (99-107); CREATININE 0.85 MG/DL (0.40-0.90); GLUCOSE 135 MG/DL (70-104); POTASSIUM 4.8 MMOL/L (3.5-5.1); SODIUM 133 MMOL/L (135-145); TOTAL CARBON DIOXIDE 27.8 MMOL/L (24-32); eCRCL 41 ML/MIN; eGFR 70 ML/MIN
[2024-04-19 08:58] LABS: ANISOCYTOSIS 1+; PLATELET ESTIMATE INCREASED; TOTAL CELLS COUNTED 100
[2024-04-19 09:00] LABS: ELLIPTOCYTES FEW; SCHISTOCYTES FEW; STOMATOCYTES FEW
[2024-04-19] MEDS ORDERED: chloestyramine/aspartame 4gm packet PO SCH (11:00)
[2024-04-19] MEDS: chloestyramine/aspartame 4gm packet PO SCH (12:05)
[2024-04-19] MEDS: morphine ER 15mg tablet PO SCH (12:28)
[2024-04-19] MEDS: ondansetron/PF 4mg/2ml inj IV SCH (13:57)
[2024-04-20] VITALS (7 sets, daily range): BP systolic 86–137; BP diastolic 48–71; PULSE 87–102; RESP 16–18; TEMP 96.9–98; O2SAT 95–98
[2024-04-20 06:50] LABS: ALBUMIN 2.9 G/DL (3.4-5.0); ANION GAP 10 (8-16); BLOOD UREA NITROGEN 24 MG/DL (7-18); BUN/CREATININE RATIO 31.6 (10.0-20.0); CALCIUM 9.5 MG/DL (8.5-10.1); CHLORIDE 103 MMOL/L (99-107); CREATININE 0.76 MG/DL (0.40-0.90); GLUCOSE 158 MG/DL (70-104); POTASSIUM 4.3 MMOL/L (3.5-5.1); SODIUM 139 MMOL/L (135-145); TOTAL CARBON DIOXIDE 26.2 MMOL/L (24-32); eCRCL 45 ML/MIN; eGFR 79 ML/MIN
[2024-04-20 07:16] LABS: BASOPHILS # (AUTO) 0.1 X10'3 (0-0.2); BASOPHILS % (AUTO) 0.7 % (0-1); EOSINOPHILS # (AUTO) 0.2 X10'3 (0-0.9); EOSINOPHILS % (AUTO) 2.3 % (0-6); HEMATOCRIT 30.9 % (35.0-45.0); HEMOGLOBIN 9.9 g/dl (12.0-16.0); LYMPHOCYTES % (AUTO) 23.5 % (21-51); MEAN CORPUSCULAR HEMOGLOBIN 28.6 PG (27.0-31.0); MEAN CORPUSCULAR HGB CONC 32.1 g/dL (33.0-36.5); MEAN CORPUSCULAR VOLUME 89.1 FL (78-98); MONOCYTES # (AUTO) 1.1 X10'3 (0-0.9); MONOCYTES % (AUTO) 12.2 % (2-12); NEUTROPHILS # (AUTO) 5.3 X10'3 (1.8-7.7); NEUTROPHILS % (AUTO) 61.3 % (42-75); PLATELET COUNT 524 X10'3 (140-440); RED BLOOD COUNT 3.47 X10'6 (4.20-5.60); RED CELL DISTRIBUTION WIDTH 18.5 % (11.5-14.5); WHITE BLOOD COUNT 8.7 X10'3 (4.5-11.0)
[2024-04-20] MEDS: normal saline 500ml IV soln 500 ML IV ONE (12:33)
[2024-04-21 06:00] VITALS: BP 106/59; PULSE 81; RESP 16; TEMP 97.6; O2SAT 97
[2024-04-21 15:00] VITALS: BP 119/62; PULSE 89; RESP 18; TEMP 98.3; O2SAT 100
[2024-04-21] MEDS: morphine ER 15mg tablet PO SCH (15:38)
[2024-04-21 18:00] VITALS: BP 119/62; PULSE 88; RESP 14; TEMP 98.2; O2SAT 97
[2024-04-21 22:00] VITALS: BP 120/60; PULSE 86; RESP 16; TEMP 98; O2SAT 98
[2024-04-21 23:26] VITALS: PULSE 97; RESP 18; O2SAT 98
[2024-04-22 09:14] VITALS: PULSE 99; RESP 18; O2SAT 99
[2024-04-22 11:30] VITALS: BP 127/71; PULSE 89; RESP 16; TEMP 98.8; O2SAT 98
[2024-04-22] MEDS: lactose-reduced food (Ensure Enlive) - 237ml bottle PO SCH (13:00)
[2024-04-22 18:00] VITALS: BP 116/77; PULSE 97; RESP 16; TEMP 98.5; O2SAT 97
[2024-04-22] MEDS ORDERED: traZODone 150mg tablet PO SCH (20:00)
[2024-04-22 22:00] VITALS: BP 113/64; PULSE 92; RESP 16; TEMP 97.9; O2SAT 98
[2024-04-22] MEDS ORDERED: traZODone 50mg tablet PO SCH (22:26)
[2024-04-22] MEDS: traZODone 50mg tablet PO SCH (22:46)
[2024-04-22 23:51] VITALS: PULSE 90; RESP 16; O2SAT 98
[2024-04-22] MEDS: ipratropium/albuterol 3ml nebule NEB PRN (23:51)
[2024-04-22 23:57] VITALS: PULSE 98; RESP 18
[2024-04-23] MEDS: metoprolol succinate 25mg (24-HOUR) SR. Tablet PO SCH (10:43)
[2024-04-23] MEDS: furosemide 40mg tablet PO SCH (10:43)
[2024-04-23] MEDS: losartan 25mg tablet PO SCH (10:44)
[2024-04-23] MEDS: insulin glargine (Lantus) pen - multi-dose SQ ONE ×2 (10:47)
[2024-04-23 13:07] VITALS: PULSE 76; RESP 18; O2SAT 99
[2024-04-23 18:00] VITALS: BP 104/51; PULSE 77; RESP 16; TEMP 97.2; O2SAT 99
[2024-04-23] MEDS: ondansetron/PF 4mg/2ml inj IM ONE (19:15)
[2024-04-23 20:46] VITALS: PULSE 85; RESP 17; O2SAT 98
[2024-04-23 20:51] VITALS: PULSE 85; RESP 17
[2024-04-23 22:00] VITALS: BP 128/68; PULSE 93; RESP 15; TEMP 98; O2SAT 99
[2024-04-24] MEDS: morphine 2 MG/ML inj. syringe IV PRN ×2 (03:08→19:04)
[2024-04-24 06:00] VITALS: BP 134/74; PULSE 85; RESP 15; TEMP 98.9; O2SAT 98
[2024-04-24 08:00] VITALS: PULSE 80; RESP 14; O2SAT 99
[2024-04-24 09:39] LABS: BASOPHILS # (AUTO) 0.1 X10'3 (0-0.2); BASOPHILS % (AUTO) 0.9 % (0-1); EOSINOPHILS # (AUTO) 0.2 X10'3 (0-0.9); EOSINOPHILS % (AUTO) 3.5 % (0-6); HEMATOCRIT 33.9 % (35.0-45.0); HEMOGLOBIN 10.6 g/dl (12.0-16.0); LYMPHOCYTES # (AUTO) 1.6 X10'3 (1.1-4.8); LYMPHOCYTES % (AUTO) 22.7 % (21-51); MEAN CORPUSCULAR HEMOGLOBIN 29.3 PG (27.0-31.0); MEAN CORPUSCULAR HGB CONC 31.4 g/dL (33.0-36.5); MEAN CORPUSCULAR VOLUME 93.2 FL (78-98); MEAN PLATELET VOLUME 8.5 FL (7.4-10.4); MONOCYTES # (AUTO) 0.6 X10'3 (0-0.9); MONOCYTES % (AUTO) 8.4 % (2-12); NEUTROPHILS # (AUTO) 4.5 X10'3 (1.8-7.7); NEUTROPHILS % (AUTO) 64.5 % (42-75); PLATELET COUNT 508 X10'3 (140-440); RED BLOOD COUNT 3.63 X10'6 (4.20-5.60); RED CELL DISTRIBUTION WIDTH 25.7 % (11.5-14.5)
[2024-04-24 10:06] LABS: ALANINE AMINOTRANSFERASE 20 U/L (12-78); ALBUMIN 2.9 G/DL (3.4-5.0); ALBUMIN/GLOBULIN RATIO 0.6 (1.1-1.5); ALKALINE PHOSPHATASE 121 IU/L (46-116); ANION GAP 10 (8-16); ASPARTATE AMINO TRANSFERASE 9 U/L (10-37); BILIRUBIN,TOTAL 0.3 MG/DL (0.1-1.0); BLOOD UREA NITROGEN 23 MG/DL (7-18); BUN/CREATININE RATIO 34.3 (10.0-20.0); CALCIUM 9.6 MG/DL (8.5-10.1); CHLORIDE 104 MMOL/L (99-107); CREATININE 0.67 MG/DL (0.40-0.90); GLUCOSE 137 MG/DL (70-104); POTASSIUM 4.2 MMOL/L (3.5-5.1); SODIUM 136 MMOL/L (135-145); TOTAL CARBON DIOXIDE 22.2 MMOL/L (24-32); TOTAL PROTEIN 7.4 G/DL (6.4-8.2); eCRCL 52 ML/MIN; eGFR > 90 ML/MIN
[2024-04-24 10:28] LABS: PLATELET ESTIMATE INCREASED
[2024-04-24 10:29] LABS: ANISOCYTOSIS 3+
[2024-04-24 10:30] LABS: ELLIPTOCYTES FEW; STOMATOCYTES 1+
[2024-04-24] MEDS: metoclopramide 5 mg/ml inj IV PRN (14:28)
[2024-04-24 18:00] VITALS: BP 107/63; PULSE 76; RESP 16; TEMP 98.1; O2SAT 96
[2024-04-24 22:00] VITALS: BP 109/82; PULSE 83; RESP 16; TEMP 98; O2SAT 99
[2024-04-25 06:00] VITALS: BP 109/53; PULSE 81; RESP 18; TEMP 98.6; O2SAT 98
[2024-04-25 10:00] VITALS: BP 120/72; PULSE 88; RESP 16; TEMP 98.7; O2SAT 98
[2024-04-25] MEDS: acetaminophen 325mg tablet PO PRN (14:00)
[2024-04-25 16:05] VITALS: PULSE 77; RESP 16; O2SAT 98
[2024-04-25 18:00] VITALS: BP 123/54; PULSE 74; RESP 16; TEMP 97.7; O2SAT 99
[2024-04-25 22:00] VITALS: BP 108/56; PULSE 89; RESP 19; TEMP 97.1; O2SAT 99
[2024-04-25] MEDS: ondansetron/PF 4mg/2ml inj IV PRN (22:25)
[2024-04-25] MEDS: morphine ER 15mg tablet PO SCH (22:30)
[2024-04-26] VITALS (7 sets, daily range): BP systolic 98–111; BP diastolic 48–66; PULSE 72–91; RESP 14–17; TEMP 97.4–98.8; O2SAT 93–99
[2024-04-27] MEDS: morphine ER 15mg tablet PO SCH (02:01)
[2024-04-27 06:00] VITALS: BP 98/56; PULSE 91; RESP 16; TEMP 98.6; O2SAT 95
[2024-04-27] MEDS: DEXTROSE 15 GM of carb/4 tabs (each vial/BOTTLE has 4 tablets) PO PRN (07:24)
[2024-04-27 08:47] VITALS: RESP 16; O2SAT 95
[2024-04-27 10:00] VITALS: BP 112/63; PULSE 91; RESP 16; TEMP 97.8; O2SAT 96
[2024-04-27] MEDS: oxyCODONE/APAP 5-325mg tablet PO PRN (12:47)
[2024-04-27 15:35] VITALS: PULSE 102; RESP 18; O2SAT 98
[2024-04-27 18:00] VITALS: BP 107/61; PULSE 75; RESP 14; TEMP 98.6; O2SAT 92
[2024-04-27] MEDS: oxyCODONE/APAP 10/325mg tablet PO PRN (19:22)
[2024-04-27 22:20] VITALS: BP 103/56; PULSE 81; RESP 16; TEMP 97.9; O2SAT 96
[2024-04-28] VITALS (7 sets, daily range): BP systolic 86–107; BP diastolic 46–62; PULSE 75–98; RESP 16–20; TEMP 97.1–98.2; O2SAT 94–100
[2024-04-28] MEDS: HYDROmorphone inj. 0.5 MG/0.5 ML DISP.SYRIN IV PRN (09:06)
[2024-04-29 06:00] VITALS: BP 108/56; PULSE 82; RESP 15; TEMP 96.8; O2SAT 97
[2024-04-29 10:00] VITALS: BP 98/46; PULSE 73; RESP 16; TEMP 98.1; O2SAT 97
[2024-04-29] MEDS: HYDROmorphone 1 mg/ml syringe IV ONE ×2 (11:58)
[2024-04-29 18:00] VITALS: BP 108/57; PULSE 82; RESP 18; TEMP 98.1; O2SAT 98
[2024-04-29 19:42] VITALS: PULSE 75; RESP 16; O2SAT 100
[2024-04-29 20:00] VITALS: RESP 18; O2SAT 95
[2024-04-29 22:00] VITALS: BP 122/61; PULSE 77; RESP 16; TEMP 97.7; O2SAT 100
[2024-04-30 06:00] VITALS: BP 92/51; PULSE 68; RESP 16; TEMP 97.5; O2SAT 98
[2024-04-30 09:46] LABS: BASOPHILS # (AUTO) 0.1 X10'3 (0-0.2); EOSINOPHILS # (AUTO) 0.3 X10'3 (0-0.9); EOSINOPHILS % (AUTO) 5.8 % (0-6); HEMATOCRIT 38.8 % (35.0-45.0); LYMPHOCYTES # (AUTO) 1.8 X10'3 (1.1-4.8); LYMPHOCYTES % (AUTO) 33.1 % (21-51); MEAN CORPUSCULAR HEMOGLOBIN 29.7 PG (27.0-31.0); MEAN CORPUSCULAR HGB CONC 30.9 g/dL (33.0-36.5); MEAN PLATELET VOLUME 8.4 FL (7.4-10.4); MONOCYTES # (AUTO) 0.6 X10'3 (0-0.9); MONOCYTES % (AUTO) 11.2 % (2-12); NEUTROPHILS # (AUTO) 2.6 X10'3 (1.8-7.7); NEUTROPHILS % (AUTO) 48.9 % (42-75); PLATELET COUNT 434 X10'3 (140-440); RED BLOOD COUNT 4.04 X10'6 (4.20-5.60); RED CELL DISTRIBUTION WIDTH 23.4 % (11.5-14.5); WHITE BLOOD COUNT 5.4 X10'3 (4.5-11.0)
[2024-04-30 09:59] LABS: ALANINE AMINOTRANSFERASE 25 U/L (12-78); ALBUMIN 2.9 G/DL (3.4-5.0); ALBUMIN/GLOBULIN RATIO 0.6 (1.1-1.5); ALKALINE PHOSPHATASE 208 IU/L (46-116); ASPARTATE AMINO TRANSFERASE 28 U/L (10-37); BILIRUBIN,TOTAL 0.2 MG/DL (0.1-1.0); BLOOD UREA NITROGEN 17 MG/DL (7-18); BUN/CREATININE RATIO 28.3 (10.0-20.0); GLUCOSE 121 MG/DL (70-104); TOTAL CARBON DIOXIDE 19.8 MMOL/L (24-32); TOTAL PROTEIN 7.8 G/DL (6.4-8.2); eCRCL 58 ML/MIN; eGFR > 90 ML/MIN
[2024-04-30 10:00] VITALS: BP 129/79; PULSE 84; RESP 16; TEMP 97.6; O2SAT 99
[2024-04-30 10:15] LABS: POTASSIUM 3.9 MMOL/L (3.5-5.1); SODIUM 133 MMOL/L (135-145)
[2024-04-30 10:18] LABS: ANION GAP 10 (8-16); CHLORIDE 103 MMOL/L (99-107)
[2024-04-30 18:00] VITALS: BP 128/72; PULSE 88; RESP 18; TEMP 97.7; O2SAT 100
[2024-04-30 20:49] VITALS: PULSE 72; RESP 16; O2SAT 98
[2024-04-30 22:00] VITALS: BP 93/58; PULSE 87; RESP 17; TEMP 96.8; O2SAT 98
[2024-04-30 22:16] VITALS: RESP 16; O2SAT 97
[2024-05-01] VITALS (10 sets, daily range): BP systolic 86–108; BP diastolic 41–64; PULSE 68–87; RESP 14–18; TEMP 97.3–98.7; O2SAT 95–99
[2024-05-01 06:32] LABS: ALANINE AMINOTRANSFERASE 25 U/L (12-78); ALBUMIN 2.7 G/DL (3.4-5.0); ALBUMIN/GLOBULIN RATIO 0.6 (1.1-1.5); ALKALINE PHOSPHATASE 182 IU/L (46-116); ANION GAP 8 (8-16); ASPARTATE AMINO TRANSFERASE 18 U/L (10-37); BILIRUBIN,TOTAL 0.1 MG/DL (0.1-1.0); BLOOD UREA NITROGEN 18 MG/DL (7-18); BUN/CREATININE RATIO 26.5 (10.0-20.0); CALCIUM 9.3 MG/DL (8.5-10.1); CHLORIDE 103 MMOL/L (99-107); CREATININE 0.68 MG/DL (0.40-0.90); GLUCOSE 162 MG/DL (70-104); POTASSIUM 3.8 MMOL/L (3.5-5.1); SODIUM 134 MMOL/L (135-145); TOTAL CARBON DIOXIDE 23.5 MMOL/L (24-32); TOTAL PROTEIN 7.1 G/DL (6.4-8.2); eCRCL 51 ML/MIN; eGFR 90 ML/MIN
[2024-05-02] VITALS (8 sets, daily range): BP systolic 94–114; BP diastolic 49–62; PULSE 56–85; RESP 16–18; TEMP 97.5–98.8; O2SAT 95–99
[2024-05-02 07:27] LABS: BASOPHILS # (AUTO) 0.1 X10'3 (0-0.2); BASOPHILS % (AUTO) 0.9 % (0-1); EOSINOPHILS # (AUTO) 0.2 X10'3 (0-0.9); EOSINOPHILS % (AUTO) 4.2 % (0-6); HEMATOCRIT 34.3 % (35.0-45.0); HEMOGLOBIN 11.3 g/dl (12.0-16.0); LYMPHOCYTES # (AUTO) 1.9 X10'3 (1.1-4.8); MEAN CORPUSCULAR HEMOGLOBIN 30.6 PG (27.0-31.0); MEAN CORPUSCULAR HGB CONC 33.1 g/dL (33.0-36.5); MEAN CORPUSCULAR VOLUME 92.6 FL (78-98); MEAN PLATELET VOLUME 9.1 FL (7.4-10.4); MONOCYTES # (AUTO) 0.6 X10'3 (0-0.9); MONOCYTES % (AUTO) 10.3 % (2-12); NEUTROPHILS # (AUTO) 3.1 X10'3 (1.8-7.7); NEUTROPHILS % (AUTO) 52.6 % (42-75); PLATELET COUNT 448 X10'3 (140-440); RED BLOOD COUNT 3.71 X10'6 (4.20-5.60); WHITE BLOOD COUNT 5.8 X10'3 (4.5-11.0)
[2024-05-02 08:12] LABS: ALANINE AMINOTRANSFERASE 22 U/L (12-78); ALBUMIN 2.6 G/DL (3.4-5.0); ALBUMIN/GLOBULIN RATIO 0.6 (1.1-1.5); ALKALINE PHOSPHATASE 185 IU/L (46-116); ANION GAP 10 (8-16); BILIRUBIN,TOTAL 0.2 MG/DL (0.1-1.0); BLOOD UREA NITROGEN 15 MG/DL (7-18); BUN/CREATININE RATIO 22.7 (10.0-20.0); CALCIUM 9.5 MG/DL (8.5-10.1); CHLORIDE 103 MMOL/L (99-107); CREATININE 0.66 MG/DL (0.40-0.90); GLUCOSE 114 MG/DL (70-104); SODIUM 133 MMOL/L (135-145); TOTAL CARBON DIOXIDE 20.3 MMOL/L (24-32); TOTAL PROTEIN 7.3 G/DL (6.4-8.2); eCRCL 52 ML/MIN; eGFR > 90 ML/MIN
[2024-05-02 08:15] LABS: ASPARTATE AMINO TRANSFERASE 23 U/L (10-37); POTASSIUM 4.2 MMOL/L (3.5-5.1)
[2024-05-03 06:00] VITALS: BP 126/69; PULSE 72; RESP 18; TEMP 98.1; O2SAT 97
[2024-05-03 07:24] LABS: BASOPHILS # (AUTO) 0.1 X10'3 (0-0.2); BASOPHILS % (AUTO) 1.2 % (0-1); EOSINOPHILS # (AUTO) 0.2 X10'3 (0-0.9); EOSINOPHILS % (AUTO) 3.5 % (0-6); HEMATOCRIT 34.9 % (35.0-45.0); LYMPHOCYTES # (AUTO) 1.6 X10'3 (1.1-4.8); LYMPHOCYTES % (AUTO) 26.5 % (21-51); MEAN CORPUSCULAR HEMOGLOBIN 29.4 PG (27.0-31.0); MEAN CORPUSCULAR HGB CONC 31.5 g/dL (33.0-36.5); MEAN CORPUSCULAR VOLUME 93.1 FL (78-98); MONOCYTES # (AUTO) 0.7 X10'3 (0-0.9); MONOCYTES % (AUTO) 11.4 % (2-12); NEUTROPHILS # (AUTO) 3.5 X10'3 (1.8-7.7); NEUTROPHILS % (AUTO) 57.4 % (42-75); PLATELET COUNT 374 X10'3 (140-440); RED BLOOD COUNT 3.75 X10'6 (4.20-5.60); RED CELL DISTRIBUTION WIDTH 21.9 % (11.5-14.5); WHITE BLOOD COUNT 6.2 X10'3 (4.5-11.0)
[2024-05-03 08:38] LABS: ALANINE AMINOTRANSFERASE 23 U/L (12-78); ALBUMIN 2.6 G/DL (3.4-5.0); ALBUMIN/GLOBULIN RATIO 0.6 (1.1-1.5); ALKALINE PHOSPHATASE 190 IU/L (46-116); ANION GAP 10 (8-16); ASPARTATE AMINO TRANSFERASE 17 U/L (10-37); BILIRUBIN,TOTAL 0.1 MG/DL (0.1-1.0); BLOOD UREA NITROGEN 13 MG/DL (7-18); BUN/CREATININE RATIO 19.4 (10.0-20.0); CALCIUM 9.3 MG/DL (8.5-10.1); CHLORIDE 105 MMOL/L (99-107); CREATININE 0.67 MG/DL (0.40-0.90); GLUCOSE 217 MG/DL (70-104); POTASSIUM 3.6 MMOL/L (3.5-5.1); SODIUM 133 MMOL/L (135-145); TOTAL CARBON DIOXIDE 17.9 MMOL/L (24-32); TOTAL PROTEIN 7.1 G/DL (6.4-8.2); eCRCL 52 ML/MIN; eGFR > 90 ML/MIN
[2024-05-03 10:00] VITALS: BP 107/61; PULSE 91; RESP 20; TEMP 98.5; O2SAT 97
[2024-05-03 12:26] VITALS: PULSE 76; RESP 16; O2SAT 97
[2024-05-03 18:00] VITALS: BP 109/57; PULSE 69; RESP 18; TEMP 97.6; O2SAT 99
[2024-05-03 20:00] VITALS: PULSE 72; RESP 16; O2SAT 96
[2024-05-03 22:00] VITALS: BP 108/44; PULSE 79; RESP 16; TEMP 97.8; O2SAT 98
[2024-05-04 06:00] VITALS: BP 116/59; PULSE 67; RESP 18; TEMP 97.9; O2SAT 94
[2024-05-04 08:00] VITALS: RESP 18; O2SAT 94
[2024-05-04 08:44] LABS: ALANINE AMINOTRANSFERASE 27 U/L (12-78); ALBUMIN 2.7 G/DL (3.4-5.0); ALBUMIN/GLOBULIN RATIO 0.6 (1.1-1.5); ALKALINE PHOSPHATASE 190 IU/L (46-116); ANION GAP 10 (8-16); ASPARTATE AMINO TRANSFERASE 20 U/L (10-37); BILIRUBIN,TOTAL 0.1 MG/DL (0.1-1.0); BLOOD UREA NITROGEN 16 MG/DL (7-18); BUN/CREATININE RATIO 23.2 (10.0-20.0); CALCIUM 9.7 MG/DL (8.5-10.1); CHLORIDE 104 MMOL/L (99-107); CREATININE 0.69 MG/DL (0.40-0.90); GLUCOSE 119 MG/DL (70-104); POTASSIUM 3.8 MMOL/L (3.5-5.1); SODIUM 136 MMOL/L (135-145); TOTAL CARBON DIOXIDE 22.2 MMOL/L (24-32); TOTAL PROTEIN 7.5 G/DL (6.4-8.2); eCRCL 50 ML/MIN; eGFR 89 ML/MIN
[2024-05-04 11:13] VITALS: PULSE 82; RESP 16; O2SAT 98
[2024-05-04 13:23] LABS: BASOPHILS # (AUTO) 0.1 X10'3 (0-0.2); BASOPHILS % (AUTO) 1.2 % (0-1); EOSINOPHILS # (AUTO) 0.1 X10'3 (0-0.9); EOSINOPHILS % (AUTO) 1.3 % (0-6); HEMOGLOBIN 11.9 g/dl (12.0-16.0); LYMPHOCYTES # (AUTO) 1.5 X10'3 (1.1-4.8); LYMPHOCYTES % (AUTO) 17.6 % (21-51); MEAN CORPUSCULAR HEMOGLOBIN 30.4 PG (27.0-31.0); MEAN CORPUSCULAR HGB CONC 33.1 g/dL (33.0-36.5); MEAN CORPUSCULAR VOLUME 92.1 FL (78-98); MEAN PLATELET VOLUME 8.8 FL (7.4-10.4); MONOCYTES # (AUTO) 0.5 X10'3 (0-0.9); MONOCYTES % (AUTO) 5.8 % (2-12); NEUTROPHILS # (AUTO) 6.2 X10'3 (1.8-7.7); NEUTROPHILS % (AUTO) 74.1 % (42-75); PLATELET COUNT 426 X10'3 (140-440); RED BLOOD COUNT 3.91 X10'6 (4.20-5.60); RED CELL DISTRIBUTION WIDTH 21.2 % (11.5-14.5); WHITE BLOOD COUNT 8.4 X10'3 (4.5-11.0)
[2024-05-04 13:41] LABS: PLATELET ESTIMATE NORMAL
[2024-05-04 13:42] LABS: ANISOCYTOSIS 3+; ELLIPTOCYTES FEW; STOMATOCYTES 1+; TEAR DROP CELLS FEW
[2024-05-04 18:00] VITALS: BP 106/59; PULSE 70; RESP 18; TEMP 97.9; O2SAT 98
[2024-05-04 20:00] VITALS: RESP 16; O2SAT 98
[2024-05-04 22:00] VITALS: BP 107/58; PULSE 72; RESP 16; TEMP 97.5; O2SAT 97
[2024-05-05] VITALS (8 sets, daily range): BP systolic 89–137; BP diastolic 54–79; PULSE 57–82; RESP 16–18; TEMP 97.3–98.6; O2SAT 95–99
[2024-05-05 06:12] LABS: BASOPHILS # (AUTO) 0.1 X10'3 (0-0.2); BASOPHILS % (AUTO) 1.2 % (0-1); EOSINOPHILS # (AUTO) 0.2 X10'3 (0-0.9); EOSINOPHILS % (AUTO) 3.8 % (0-6); HEMATOCRIT 34.4 % (35.0-45.0); HEMOGLOBIN 11.2 g/dl (12.0-16.0); LYMPHOCYTES # (AUTO) 1.7 X10'3 (1.1-4.8); LYMPHOCYTES % (AUTO) 27.5 % (21-51); MEAN CORPUSCULAR HEMOGLOBIN 30.4 PG (27.0-31.0); MEAN CORPUSCULAR HGB CONC 32.7 g/dL (33.0-36.5); MEAN PLATELET VOLUME 8.9 FL (7.4-10.4); MONOCYTES # (AUTO) 0.6 X10'3 (0-0.9); MONOCYTES % (AUTO) 9.5 % (2-12); NEUTROPHILS # (AUTO) 3.5 X10'3 (1.8-7.7); PLATELET COUNT 402 X10'3 (140-440); RED BLOOD COUNT 3.69 X10'6 (4.20-5.60); RED CELL DISTRIBUTION WIDTH 21.8 % (11.5-14.5); WHITE BLOOD COUNT 6.1 X10'3 (4.5-11.0)
[2024-05-05 06:40] LABS: ALANINE AMINOTRANSFERASE 25 U/L (12-78); ALBUMIN 2.6 G/DL (3.4-5.0); ALBUMIN/GLOBULIN RATIO 0.6 (1.1-1.5); ALKALINE PHOSPHATASE 172 IU/L (46-116); ANION GAP 9 (8-16); ASPARTATE AMINO TRANSFERASE 14 U/L (10-37); BILIRUBIN,TOTAL 0.1 MG/DL (0.1-1.0); BLOOD UREA NITROGEN 16 MG/DL (7-18); BUN/CREATININE RATIO 22.2 (10.0-20.0); CALCIUM 9.1 MG/DL (8.5-10.1); CHLORIDE 104 MMOL/L (99-107); CREATININE 0.72 MG/DL (0.40-0.90); GLUCOSE 198 MG/DL (70-104); SODIUM 136 MMOL/L (135-145); TOTAL PROTEIN 7.2 G/DL (6.4-8.2); eCRCL 48 ML/MIN; eGFR 84 ML/MIN
[2024-05-06 06:00] VITALS: BP 139/68; PULSE 53; RESP 16; TEMP 96.9; O2SAT 100
[2024-05-06 07:50] VITALS: PULSE 78; RESP 16; O2SAT 98
[2024-05-06 10:00] VITALS: BP 114/75; PULSE 95; RESP 18; TEMP 98.8; O2SAT 98
[2024-05-06 18:00] VITALS: BP 109/69; PULSE 78; RESP 16; TEMP 97.8; O2SAT 98
[2024-05-06 20:05] VITALS: PULSE 75; RESP 16; O2SAT 99
[2024-05-06 22:00] VITALS: BP 102/59; PULSE 70; RESP 16; TEMP 99.2; O2SAT 99
[2024-05-07 06:00] VITALS: BP 104/63; PULSE 75; RESP 16; TEMP 97.3; O2SAT 98
[2024-05-07 06:32] LABS: BASOPHILS % (AUTO) 0.4 % (0-1); EOSINOPHILS # (AUTO) 0.2 X10'3 (0-0.9); EOSINOPHILS % (AUTO) 3.6 % (0-6); HEMATOCRIT 37.5 % (35.0-45.0); HEMOGLOBIN 12.1 g/dl (12.0-16.0); LYMPHOCYTES # (AUTO) 1.6 X10'3 (1.1-4.8); LYMPHOCYTES % (AUTO) 27.4 % (21-51); MEAN CORPUSCULAR HEMOGLOBIN 29.8 PG (27.0-31.0); MEAN CORPUSCULAR HGB CONC 32.3 g/dL (33.0-36.5); MEAN CORPUSCULAR VOLUME 92.2 FL (78-98); MEAN PLATELET VOLUME 8.4 FL (7.4-10.4); MONOCYTES # (AUTO) 0.5 X10'3 (0-0.9); MONOCYTES % (AUTO) 8.3 % (2-12); NEUTROPHILS # (AUTO) 3.6 X10'3 (1.8-7.7); NEUTROPHILS % (AUTO) 60.3 % (42-75); PLATELET COUNT 399 X10'3 (140-440); RED BLOOD COUNT 4.07 X10'6 (4.20-5.60); RED CELL DISTRIBUTION WIDTH 21.7 % (11.5-14.5); WHITE BLOOD COUNT 5.9 X10'3 (4.5-11.0)
[2024-05-07 07:17] LABS: ALANINE AMINOTRANSFERASE 22 U/L (12-78); ALBUMIN 2.9 G/DL (3.4-5.0); ALBUMIN/GLOBULIN RATIO 0.6 (1.1-1.5); ALKALINE PHOSPHATASE 158 IU/L (46-116); ANION GAP 9 (8-16); ASPARTATE AMINO TRANSFERASE 17 U/L (10-37); BILIRUBIN,TOTAL 0.1 MG/DL (0.1-1.0); BLOOD UREA NITROGEN 24 MG/DL (7-18); BUN/CREATININE RATIO 35.8 (10.0-20.0); CALCIUM 9.7 MG/DL (8.5-10.1); CHLORIDE 99 MMOL/L (99-107); CREATININE 0.67 MG/DL (0.40-0.90); GLUCOSE 148 MG/DL (70-104); POTASSIUM 4.1 MMOL/L (3.5-5.1); SODIUM 133 MMOL/L (135-145); TOTAL CARBON DIOXIDE 24.8 MMOL/L (24-32); TOTAL PROTEIN 7.6 G/DL (6.4-8.2); eCRCL 52 ML/MIN; eGFR > 90 ML/MIN
[2024-05-07 08:00] VITALS: RESP 16; O2SAT 96
[2024-05-07 09:08] VITALS: PULSE 72; RESP 16; O2SAT 98
[2024-05-07 10:00] VITALS: BP 112/70; PULSE 84; RESP 16; TEMP 97.2; O2SAT 99
[2024-05-07] MEDS ORDERED: APIX5TAB3 PO (12:45)
== END 2024-05-07 16:52 | disposition home health service (06) | DRG 622 ==
LOC: ER 15:51 → ED HOLD 22:48 → EDBEDREQ 03-25 15:22 → EDBEDREQTM 03-25 15:22 → EDBEDREQDT 03-25 15:22 → PCU 3S 03-25 16:01 → SUR 3N 03-28 21:45 → PCU 3S 03-30 16:35 → ORTHO 4S 04-15 23:35
PROVIDERS: ADMIT Internal Medicine Pulmonary Disease; ATTEND Internal Medicine
PROC: 0KBP0ZZ Excision of Left Hip Muscle, Open Approach (ICD-10-PCS; 2024-03-28)
PROC: B32T1ZZ Computerized Tomography (CT Scan) of Left Pulmonary Artery using Low Osmolar Contrast (ICD-10-PCS; principal; 2024-04-05)
PROC: B32S1ZZ Computerized Tomography (CT Scan) of Right Pulmonary Artery using Low Osmolar Contrast (ICD-10-PCS; 2024-04-05)
PROC: B32T1ZZ Computerized Tomography (CT Scan) of Left Pulmonary Artery using Low Osmolar Contrast (ICD-10-PCS; 2024-04-10)
PROC: B32S1ZZ Computerized Tomography (CT Scan) of Right Pulmonary Artery using Low Osmolar Contrast (ICD-10-PCS; 2024-04-10)
PROC: 30233N1 Transfusion of Nonautologous Red Blood Cells into Peripheral Vein, Percutaneous Approach (ICD-10-PCS; 2024-04-12)
DX: E11.69 Type 2 diabetes mellitus with other specified complication (principal); I50.23 Acute on chronic systolic (congestive) heart failure; L89.214 Pressure ulcer of right hip, stage 4; L89.224 Pressure ulcer of left hip, stage 4; L89.314 Pressure ulcer of right buttock, stage 4; L89.324 Pressure ulcer of left buttock, stage 4; M86.19 Other acute osteomyelitis, multiple sites; N39.0 Urinary tract infection, site not specified; Q05.4 Unspecified spina bifida with hydrocephalus; E44.0 Moderate protein-calorie malnutrition; E87.6 Hypokalemia; E11.621 Type 2 diabetes mellitus with foot ulcer; L97.521 Non-pressure chronic ulcer of other part of left foot limited to breakdown of skin; E83.51 Hypocalcemia; E83.42 Hypomagnesemia; Z68.28 Body mass index [BMI] 28.0-28.9, adult; D50.9 Iron deficiency anemia, unspecified; B96.20 Unspecified Escherichia coli [E. coli] as the cause of diseases classified elsewhere; N31.9 Neuromuscular dysfunction of bladder, unspecified; J45.909 Unspecified asthma, uncomplicated; Z86.711 Personal history of pulmonary embolism; Z88.1 Allergy status to other antibiotic agents; Z72.0 Tobacco use; Z90.710 Acquired absence of both cervix and uterus; Z98.2 Presence of cerebrospinal fluid drainage device
CPT/HCPCS: 36415; 36430; 70250; 70450; 71045; 71046; 71275; 73630; 74177; 76700; 76857; 80048; 80053; 80061; 81001; 81003; 82330; 82728; 82948; 83036; 83540; 83550; 83605; 83735; 83880; 84145; 84484; 85007; 85008; 85025; 85027; 85379; 85610; 85651; 85730; 86140; 86885; 86900; 86901; 86920; 87040; 87077; 87081; 87088; 87186; 93005; 93306; 94640; 94760; 94799; 96365; 96375; 97110; 97116; 97161; 97164; 97530; 97535; 99285; A4314; A4338; A4615; A4618; A4649; A5200; A6154; A6196; A6209; A6212; A6213; A6222; A6223; A6250; A6253; A6258; A6260; A6402; A6407; A6446; A6449; A7000; G0378; J0131; J0692; J1100; J1170; J1171; J1644; J1650; J1756; J1815; J1885; J1940; J1956; J2020; J2060; J2250; J2270; J2405; J2470; J2704; J2710; J2765; J3010; J3475; J3490; J7030; J7040; J7120; P9016; Q0169; Q9967

== ENCOUNTER 2025-06-26 13:16 | Emergency (ER) | payer BC, MEDICAID ==
[~2025-06-26] VITALS: Ht 139.7 cm; Wt 67.7 kg
[~2025-06-26 13:16] MED LIST changes: +ALBU10.7 INH; +AMLO5TAB16 PO; +APIX5TAB3 PO; +BLOO-1657; +BUS15T PO; +CHOL378P14 PO; +CYAN100021 PO; +EMPA10TA PO; +FERR-106 PO; +FLUT1BLS10 PO; +FURO20TA4 PO; +GABA-530 PO; +LOSA25TA41 PO; +METO-384 PO; +NALO4SPR22; -NITR100C6 PO; +OXYC-658 PO; +PANT40TA54 PO; +SPIR25TA5 PO; +TRAZ150T78 PO
--- NOTE | 2025-06-26 13:31 | ELECTROCARDIOGRAPH REPORT ---
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 Lonnie De Oliveira Measurements Intervals [place] Rate: 74 P: 59 MN: 145 QRS: 55 QRSD: 88 T: 68 QT: 369 QTc: 410 Interpretive Statements Sinus rhythm Probable left atrial enlargement Anteroseptal infarct, old Electronically Signed On 06-26-2025 18:12:[address] Lonnie De Oliveira Please click the below link to view image of tracing.
--- NOTE | 2025-06-26 13:57 | RADIOLOGY REPORT ---
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 Lungs: Congestion Pleura: No effusion. No pneumothorax. Cardiomediastinal contours: Cardiomegaly Bones: Unremarkable IMPRESSION: Increased interstital prominence. This may represent pulmonary vascular congestion and/or viral pneumonia. Clinical correlation advised.
[2025-06-26 14:18] VITALS: TEMP 98
--- NOTE | 2025-06-26 14:49 | Physician Documentation ---
History of Present Illness ~ Chief Complaint: Chest Pain Stated Complaint: CHEST PAIN Time Seen by MD: 14:21 Primary Medical Doctor: DR. BRYANT Source: patient Mode of Arrival: EMS Exam Limitations: no limitations HPI 54-year-old female with sudden onset sharp radiating chest pain to right arm and upper neck. Patient states she was at rest watching TV when it 1st occurred. It does increase in intensity with light activity and movement. Patient does have extensive history of pulmonary embolism she states she is on Lipitor currently it was recently changed from Xarelto. Patient's last pulmonary embolism was approximately 12 months ago. She is treated and monitored by her primary care provider. Patient states she gets mild nausea and shortness of breath when she experiences the chest pain. She has never had the chest pain go down her right arm. 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 Medication Reconciliation Scheduled Amlodipine Besylate (Amlodipine Besylate), 1 TAB PO DAILY, (Reported) Apixaban (Eliquis), 5 MG PO BID Blood Sugar Diagnostic (Accu-Chek Guide Test Strip), 1 DAILY, (Reported) Buspirone HCl (Buspirone HCl), 1 TAB PO TID, (Reported) Cholestyramine (with Sugar) (Cholestyramine Powder), 2 PO BID, (Reported) Cyanocobalamin (Vitamin B-12) (Vitamin B-12), 1 TAB PO DAILY, (Reported) Empagliflozin (Jardiance), 1 TAB PO DAILY, (Reported) Ferrous Sulfate (Ferrous Sulfate), 1 TAB PO DAILY, (Reported) Furosemide (Furosemide), 1 TAB PO DAILY, (Reported) Gabapentin (Gabapentin), 1.5 CAP PO Q8H, (Reported) Losartan Potassium (Losartan Potassium), 1 TAB PO DAILY, (Reported) Metoprolol Succinate (Metoprolol Succinate), 1 TAB PO DAILY, (Reported) Pantoprazole Sodium (Pantoprazole Sodium), 1 TAB PO DAILY, (Reported) Promethazine Hcl (Phenergan), 1 TAB PO Q6H Spironolactone (Spironolactone), 1 TAB PO BID, (Reported) Trazodone Hcl (Trazodone Hcl), 1 TAB PO HS, (Reported) Scheduled PRN Albuterol Sulfate/Budesonide (Airsupra 90-80 Mcg Inhaler), 2 PUFFS INH Q4H PRN for SOB or wheezing, (Reported) Oxycodone Hcl IR* (Oxycodone IR*), 1 TAB PO Q8H PRN for pain, (Reported) Miscellaneous Medications Fluticasone Propion/Salmeterol (Wixela 250-50 Inhub), 1 PUFFS PO, (Reported) Naloxone HCl (Naloxone HCl), (Reported) Past Medical History 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 Alcohol Use: Rarely Drug Use: none Lives In: Home Occupation: unemployed Review of Systems All Other Systems at this time: Reviewed and Negative Respiratory: Reports: see HPI Physical Exam Vital Signs: RN Vital Signs have been reviewed: Yes, Temperature: 98.0, Source: Oral, Heart Rate: 77, Respiratory Rate: 13, BP: 192/98, Pulse Oximetry: 99, Weight: 67.700 General Appearance General: Alert, no apparent distress. HEENT: PERRL, EOMI, no injection, moist mucous membranes. Neck: Full range of motion. Respiratory: Lungs clear, no respiratory distress. Speaking in full sentences clear to auscultation bilaterally Chest: No accessory muscle use. Cardiovascular: Regular rate and rhythm, no murmurs. Extremities: Normal range of motion, no deformity. Neurologic: Oriented x4. Psychiatric: Normal mood and affect. Skin: Normal color, warm and dry. No edema, no ecchymosis. Progress Results/Orders Results/Orders Orders - BRII LEYVA NP Straight Cath For Urine Sample (06/26/25 15:52) Cult Urine + [place] [address] (06/26/25 17:04) Completed Orders - BRII LEYVA CELL CHANGER D-Dimer (06/26/25 14:58) Ua W/Microscopic, Cult If Ind (06/26/25 16:35) Vital Signs 06/26/25 14:18 Temp 98.0 Pulse 77 Resp 13 B/P (MAP) 192/98 Pulse Ox 99 Laboratory Tests Test 06/26/25 14:51 06/26/25 16:35 White Blood Count 8.3 Red Blood Count 4.81 Hemoglobin 13.8 Hematocrit 42.2 Mean Corpuscular Volume 87.7 Mean Corpuscular Hemoglobin 28.8 Mean Corpuscular Hemoglobin Concent 32.8 L Red Cell Distribution Width 17.1 H Platelet Count 294 Mean Platelet Volume 8.6 Neutrophils (%) (Auto) 72.5 Lymphocytes (%) (Auto) 19.4 L Monocytes (%) (Auto) 6.4 Eosinophils (%) (Auto) 1.0 Basophils (%) (Auto) 0.7 Neutrophils # (Auto) 6.1 Lymphocytes # (Auto) 1.6 Monocytes # (Auto) 0.5 Eosinophils # (Auto) 0.1 Basophils # (Auto) 0.1 CBC Comment D-Dimer < 0.19 D-Dimer Comment Sodium Level 140 Potassium Level 3.8 Chloride Level 109 H Carbon Dioxide Level 19.8 L Anion Gap 11 Blood Urea Nitrogen 10 Creatinine 0.84 Estimated GFR/1.73 m2 70 BUN/Creatinine Ratio 11.9 Glucose Level 169 H Calcium Level 9.0 Troponin I High Sensitivity 16 Pro-B-Type Natriuretic Peptide 279 H Albumin 3.7 Chemistry Comments Urine Specimen Description Vargas cath Urine Color Straw Urine Clarity Clear Urine pH 7.0 Urine Specific [place] <=1.005 Urine Protein Negative Urine Glucose (UA) Negative Urine Ketones Negative Urine Occult Blood Trace-intact Urine Nitrite Negative Urine Bilirubin Negative Urine Urobilinogen 0.2 Urine Leukocyte Esterase Small H Urine RBC 3-10 Urine WBC 5-10 H Urine Squamous Epithelial Cells Few Urine Transitional Epithelial Cells Few Urine Bacteria 1+ Urine Mucus Urine Culture Indicated Indicated Volume Urine Centrifuged 10 ml Urine Comment EKG/XRAY/CT/US/VASC/MRI Bone/Soft Tissue X-Ray (Ext.) : Additional Comment CHEST RADIOGRAPH INDICATION: CP TECHNIQUE: Single frontal view of the chest was obtained COMPARISON: CT CTA CHEST PE on DOS: 04/10/24, CT CTA CHEST PE on DOS: 04/05/24, DI CHEST,SINGLE VIEW on DOS: 03/30/24, DI CHEST,TWO VIEWS on DOS: 03/24/24 FINDINGS: Lines and Tubes: 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 Lungs: Congestion Pleura: No effusion. No pneumothorax. Cardiomediastinal contours: Cardiomegaly Bones: Unremarkable IMPRESSION: Increased interstital prominence. This may represent pulmonary vascular congestion and/or viral pneumonia. Clinical correlation advised. Medical Decision Making Additional information obtaine: old records, N/A Findings Labs including D-dimer to evaluate for pulmonary embolism with sudden onset chest pain radiating to right arm. EKG unremarkable for any significant findings as well as chest x-ray. Other differentials include STEMI/NSTEMI, pulmonary embolism, bacterial versus viral respiratory infection. Anxiety. D- dimer and troponin were ultimately unremarkable. Patient states the only other time she has felt like this she had a UTI she has a urostomy and she self catheterizes could have a UTI. Otherwise vital signs are reassuring labs are reassuring. X-ray was unremarkable for any significant findings. Urinalysis does show leukocytes we will treat for UTI to follow up with primary care Differential Dx:Considerations: Include: Other Departure Time of Disposition: 17:12 Disposition: 01 HOME / SELF CARE / HOMELESS Impression: Primary Impression: UTI (urinary tract infection) Additional Impression: Tenderness of chest wall Condition: Stable Discharge Instructions: Nonspecific Chest Pain, Adult, Urinary Tract Infection, Adult, [id number] Additional Instructions: Your troponin for your heart and lap for pulmonary embolism were within normal range. There was some white blood cells found in your urine. We will treat you for UTI but follow up with primary care in 2-3 days. Monitor for any new or worsening symptoms feel free to return to the ER. Referrals: NO PRIMARY CARE PROVIDER (PCP) Prescriptions Nitrofurantoin Monohyd/M-Cryst (Macrobid 100 mg Capsule) 100 Mg Capsule 1 CAP PO Q12H for 10 Days, #20 CAP 0 Refills Prov: BRII LEYVA NP 06/26/25 Education Educated: Patient Educated regarding: diagnosis, treatment, need for follow up Signature Scribe Signature: No scribe Attestation: The note accurately reflects work and decisions made by me.Brii Leyva - MENTAL HEALTH PROGRAM MANAGER 06/26/25 14:49 BRII LEYVA NP Jun 26, 2025 14:49
[2025-06-26 14:59] LABS: MEAN PLATELET VOLUME 8.6 FL (7.4-10.4); RED CELL DISTRIBUTION WIDTH 17.1 % (11.5-14.5)
[2025-06-26 15:22] LABS: CREATININE 0.84 MG/DL (0.40-0.90); PRO BRAIN NATRIURETIC PEPTIDE 279 PG/ML (0-125); TOTAL CARBON DIOXIDE 19.8 MMOL/L (24-32); eCRCL 41 ML/MIN; eGFR 70 ML/MIN
[2025-06-26 16:48] LABS: LEUKOCYTE ESTERASE ,URINE SMALL (Neg); NITRITES, URINE NEGATIVE (Neg); OCCULT BLOOD,URINE TRACE-INTACT (Neg)
[2025-06-26 17:02] LABS: UA COLLECTION TYPE FOLEY CATH
[2025-06-26 17:03] LABS: SQUAMOUS EPITHELIAL CELL,UR FEW /LPF (FEW)
[2025-06-26] MEDS ORDERED: NITR100C6 PO (17:14)
[2025-06-26] MEDS: nitrofuran monohydrate/nitrofuran macrocrysal 100 MG (MacroBID) capsule PO ONE (17:40)
[2025-06-26 17:59] VITALS: BP 156/95; PULSE 88; RESP 14; O2SAT 99
== END 2025-06-26 18:09 | disposition home or self-care (01) ==
LOC: ER 13:16
DX: R06.02 Shortness of breath (principal); N39.0 Urinary tract infection, site not specified; E11.9 Type 2 diabetes mellitus without complications; I25.2 Old myocardial infarction; Z88.1 Allergy status to other antibiotic agents; Z88.5 Allergy status to narcotic agent; Z91.040 Latex allergy status; Z90.710 Acquired absence of both cervix and uterus; Z86.711 Personal history of pulmonary embolism; Z79.899 Other long term (current) drug therapy; Z79.84 Long term (current) use of oral hypoglycemic drugs; Z79.01 Long term (current) use of anticoagulants; Z56.0 Unemployment, unspecified
CPT/HCPCS: 36415; 71045; 80048; 81001; 83880; 84484; 85025; 85379; 87077; 87088; 87186; 93005; 99285; A4338; C1758